=== PATIENT | female | born 1940 | race Asian ===

== ENCOUNTER 2020-11-28 16:41 | Inpatient (IN) | payer OTHER, SELFPAY ==
[2020-11-28] VITALS (15 sets, daily range): BP systolic 103–141; BP diastolic 54–66; PULSE 63–79; RESP 15–30; TEMP 36.6–37.3; O2SAT 83–97; BMI 23.4
--- NOTE | 2020-11-28 16:54 | DI.CT.S_ITS ---
PROCEDURE: CT HEAD/BRAIN WO CON INDICATIONS: confusion TECHNIQUE: Noncontrast 4.5 mm thick angled axial sections acquired from the foramen magnum to the vertex, with coronal and sagittal reformats. For radiation dose reduction, the following was used: automated exposure control, adjustment of mA and/or kV according to patient size. COMPARISON: [facility], CR, XR CHEST 1V, 11/28/2020, 17:14. FINDINGS: Image quality: Excellent. CSF spaces: Basal cisterns are patent. No extra-axial fluid collections. The ventricles are symmetric in size and shape. Brain: Focal low density can be seen involving the left frontal lobe, with volume loss. There is relative sparing of the overlying adames matter. Milder areas of low density can be seen elsewhere within the cerebral hemisphere. No intracranial bleeds or masses. There is cerebral volume loss for age, with resultant ventricular and sulcal prominence. There are periventricular and deep white matter chronic small vessel ischemic changes. There is intracranial internal carotid artery atherosclerosis. Skull and face: Calvarium and visualized facial bones appear intact, without suspicious lesions. Sinuses: Visualized sinuses and mastoids are clear. IMPRESSION: No ligia, acute abnormality can be seen. 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 However, differential diagnosis would include an underlying mass, yet this is considered to be less likely. When clinically appropriate, please consider a follow-up brain MRI (without and with contrast) contrast for further evaluation (assuming that there is no contraindication). Dictated by: Ihsan Osman M.D. on 11/28/2020 at 16:53 Approved by: Ihsan Osman M.D. on 11/28/2020 at 16:55
--- NOTE | 2020-11-28 17:10 | ED.NEUROSD ---
HPI - Neuro Symptoms/Deficit General Chief Complaint: Neuro Symptoms/Deficit Stated Complaint: heat exhaustion,dehydration Time Seen by Provider: 11/28/20 16:54 Source: patient Mode of arrival: Ambulatory History of Present Illness HPI Narrative: Patient is an 80-year-old female with history of stroke presenting today with increased confusion and headache. states that she was seen at [facility] on November 22 after heat stroke. He says she continues to not do well. He says her communication has gotten worse and she continues to complain of headache, and have confusion. She is found to be hypoxic at 86% on room air with low blood pressure of 103/54. She is overall in extremely poor historian. is only slightly better. Records from [place] have been seen and reviewed in. Related Data Home Medications Medication Instructions Recorded Confirmed acetaminophen 300 mg-codeine 30 mg 1 tab PO Q4H PRN 11/29/20 11/29/20 tablet atorvastatin 40 mg tablet 80 mg PO BEDTIME 11/29/20 11/29/20 carvedilol 12.5 mg tablet 12.5 mg PO BID 11/29/20 11/29/20 clopidogrel 75 mg tablet 75 mg PO DAILY 11/29/20 11/29/20 denosumab 60 mg/mL subcutaneous 60 mg SUBCUT [id number] 11/29/20 11/29/20 syringe (Prolia) escitalopram oxalate 5 mg tablet 5 mg PO DAILY 11/29/20 11/29/20 metformin 500 mg tablet 500 mg PO BID 11/29/20 11/29/20 nifedipine 30 mg tablet,extended 60 mg PO DAILY 11/29/20 11/29/20 release pantoprazole 20 mg tablet,delayed 20 mg PO DAILY 11/29/20 11/29/20 release Allergies Allergy/AdvReac Type Severity Reaction Status Date / Time No Known Drug Allergies Allergy Verified 11/28/20 17:28 Review of Systems Review of Systems ROS Unobtainable: All systems reviewed & are unremarkable except as noted in HPI and below Constitutional Constitutional: Reports anorexia, Reports fatigue, Reports headache(s) and Reports weakness ENT Ears, Nose, Mouth, and Throat: Reports headache(s) Cardiovascular Cardiovascular: Denies chest pain, Denies rapid heart rate and Denies irregular heart rhythm Respiratory Respiratory: Denies chest congestion and Denies cough Gastrointestinal Gastrointestinal: Denies nausea and Denies vomiting Musculoskeletal Musculoskeletal: Denies back pain and Reports muscle weakness Neurologic Neurologic: Denies abnormal movements, Reports headache(s) and Reports weakness Endocrine Endocrine: Reports fatigue Patient History Medical History CVA (cerebral vascular accident) Essential hypertension Hyperlipidemia Surgical History History of hysterectomy History of nasal surgery History of shoulder surgery Family History Mother Medical history unknown Father Medical history unknown Brother Medical history unknown Brother Medical history unknown Social History household members: spouse Exam Initial Vital Signs Initial Vital Signs: Vital Signs Temperature 99.1 F 11/28/20 16:53 Pulse Rate 79 11/28/20 16:53 Respiratory Rate 24 11/28/20 16:53 Blood Pressure 103/54 L 11/28/20 16:53 Pulse Oximetry 83 L 11/28/20 16:53 GENERAL: Alert 80-year-old female appears weak HEENT: Head atraumatic,EOMI, pupils reactive, face symmetric, moist mucous membranes CARDIOVASCULAR: Regular rate and rhythm positive 6/6 systolic murmur RESPIRATORY: Breath sounds equal bilaterally, no wheezes rales or rhonchi. ABDOMEN: Soft, nontender. Normoactive bowel sounds all 4 quadrants. No guarding or rebound. EXTREMITIES: Normal range of motion, no clubbing or edema. Neurovascularly intact NEUROLOGICAL: Alert and oriented x2. 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 Course Orders Ordered: Acetaminophen (Acetaminophen 325 Mg Tablet) 650 mg PO Q4HR PRN PRN Reason: Fever/Mild Pain (1-3) Acetaminophen/Codeine Phosphate (Codeine/Acetaminophen 30/300 Tablet) 1 tab PO Q4H PRN PRN Reason: Pain (Scale Score 4-6) Last Admin: 11/30/20 10:49 Dose: 1 tab Documented by: Admin: 11/29/20 20:32 Dose: 1 tab Documented by: ANGELINA Docusate Sodium (Docusate 100 Mg Capsule) 100 mg PO BID PRN PRN Reason: Constipation Lorazepam (Lorazepam 2 Mg/Ml Inj) 1 mg IV Q1HR PRN PRN Reason: Agitation/Anxiety Last Admin: 12/03/20 13:37 Dose: 1 mg Documented by: Admin: 12/03/20 09:19 Dose: 1 mg Documented by: Admin: 12/03/20 07:26 Dose: 1 mg Documented by: Admin: 12/02/20 20:05 Dose: 1 mg Documented by: Admin: 12/02/20 17:50 Dose: 1 mg Documented by: Admin: 12/02/20 14:50 Dose: 1 mg Documented by: Admin: 12/02/20 08:41 Dose: 1 mg Documented by: Admin: 12/02/20 03:48 Dose: 1 mg Documented by: FERNY Metoclopramide HCl (Metoclopramide 10 Mg/2 Ml Inj) 10 mg IV Q4HR PRN PRN Reason: Nausea And Vomiting Morphine Sulfate (Morphine 2 Mg/Ml Inj) 2 mg IV Q30MIN PRN PRN Reason: Pain/Dyspnea Last Admin: 12/03/20 14:41 Dose: 2 mg Documented by: Admin: 12/03/20 13:06 Dose: 2 mg Documented by: Admin: 12/03/20 11:11 Dose: 2 mg Documented by: Admin: 12/03/20 08:56 Dose: 2 mg Documented by: Admin: 12/03/20 07:26 Dose: 2 mg Documented by: Admin: 12/03/20 06:30 Dose: 2 mg Documented by: Admin: 12/03/20 03:20 Dose: 2 mg Documented by: Admin: 12/02/20 22:07 Dose: 2 mg Documented by: Admin: 12/02/20 19:53 Dose: 2 mg Documented by: Admin: 12/02/20 17:36 Dose: 2 mg Documented by: Admin: 12/02/20 14:50 Dose: 2 mg Documented by: Admin: 12/02/20 11:58 Dose: 2 mg Documented by: Admin: 12/02/20 08:43 Dose: 2 mg Documented by: Admin: 12/02/20 03:48 Dose: 2 mg Documented by: Admin: 12/02/20 03:15 Dose: 2 mg Documented by: CARLOS Naloxone HCl (Naloxone 0.4 Mg/Ml Vial) 0.2 mg IV Q2MIN PRN PRN Reason: Opiate Reversal Ondansetron HCl (Ondansetron 4 Mg/2 Ml Inj) 4 mg IV Q4HR PRN PRN Reason: Nausea And Vomiting Oxycodone HCl (Oxycodone Ir 5 Mg Tablet) 5 mg PO Q4HR PRN PRN Reason: Pain, Moderate (4-6) Last Admin: 11/30/20 11:24 Dose: 5 mg Documented by: SARAH Scopolamine (Scopolamine 1 Patch) 1 patch TOP Q72H PRN PRN Reason: Secretions Last Admin: 12/03/20 13:37 Dose: 1 patch Documented by: Admin: 12/03/20 08:56 Dose: 1 patch Documented by: NABOR Sodium Chloride (Sodium Chloride 0.9% Flush) 10 ml IV PRN PRN PRN Reason: Flush Last Admin: 12/03/20 13:38 Dose: 10 ml Documented by: Admin: 12/01/20 11:57 Dose: 10 ml Documented by: Admin: 12/01/20 03:15 Dose: 10 ml Documented by: FERNY Sodium Chloride (Sodium Chloride 0.9% Flush) 10 ml IV BID BRETT Last Admin: 12/03/20 07:28 Dose: 10 ml Documented by: Admin: 12/02/20 17:37 Dose: 10 ml Documented by: Admin: 12/02/20 11:59 Dose: 10 ml Documented by: Admin: 12/02/20 00:49 Dose: Not Given Documented by: Admin: 12/01/20 09:44 Dose: 10 ml Documented by: Admin: 11/30/20 22:22 Dose: Not Given Documented by: Admin: 11/30/20 11:48 Dose: Not Given Documented by: Admin: 11/29/20 22:14 Dose: Not Given Documented by: Admin: 11/29/20 08:31 Dose: 10 ml Documented by: NICK Discontinued Medications Acetaminophen (Acetaminophen 325 Mg Tablet) 650 mg PO Q4HR PRN PRN Reason: Fever/Mild Pain (1-3) Atorvastatin Calcium (Atorvastatin 20 Mg Tablet) 80 mg PO BEDTIME [facility] Last Admin: 11/29/20 20:33 Dose: 80 mg Documented by: Admin: 11/28/20 23:19 Dose: 80 mg Documented by: CORAZON Atorvastatin Calcium (Atorvastatin 20 Mg Tablet) 80 mg PO BEDTIME [facility] Last Admin: 11/29/20 22:13 Dose: Not Given Documented by: ANGELINA Carvedilol (Carvedilol 12.5 Mg Tablet) 12.5 mg PO BID [facility] Last Admin: 11/29/20 20:33 Dose: 12.5 mg Documented by: Admin: 11/29/20 08:33 Dose: 12.5 mg Documented by: NICK Carvedilol (Carvedilol 12.5 Mg Tablet) 12.5 mg PO BID [facility] Carvedilol (Carvedilol 12.5 Mg Tablet) 3.125 mg PO BID [facility] Last Admin: 11/30/20 11:17 Dose: Not Given Documented by: Admin: 11/29/20 22:14 Dose: Not Given Documented by: ANGELINA Clopidogrel Bisulfate (Clopidogrel 75 Mg Tablet) 75 mg PO DAILY [facility] Last Admin: 11/29/20 08:31 Dose: 75 mg Documented by: NICK Clopidogrel Bisulfate (Clopidogrel 75 Mg Tablet) 75 mg PO DAILY [facility] Last Admin: 11/30/20 11:18 Dose: Not Given Documented by: SARAH Dexamethasone (Dexamethasone 10 Mg/Ml Vial) 10 mg IV NOW ONE Stop: 11/28/20 18:10 Last Admin: 11/28/20 18:39 Dose: 10 mg Documented by: IAM Dexamethasone (Dexamethasone 10 Mg/Ml Vial) 6 mg IV DAILY@1800 [facility] Last Admin: 11/29/20 17:12 Dose: 6 mg Documented by: ANGELINA Dextrose (Dextrose 50 % In Water 25 Gm/50 Ml Syringe) 25 gm IV PRN PRN PRN Reason: Hypoglycemia Docusate Sodium (Docusate 100 Mg Capsule) 100 mg PO BID [facility] Last Admin: 12/02/20 09:40 Dose: Not Given Documented by: Admin: 12/01/20 21:13 Dose: Not Given Documented by: CARLOS Enoxaparin Sodium (Enoxaparin 40 Mg/0.4 Ml Syringe) 40 mg SUBCUT DAILY [facility] Last Admin: 12/02/20 09:41 Dose: Not Given Documented by: Admin: 12/01/20 09:42 Dose: Not Given Documented by: Admin: 11/30/20 11:18 Dose: Not Given Documented by: Admin: 11/29/20 13:50 Dose: 40 mg Documented by: NICK Escitalopram Oxalate (Escitalopram 10 Mg Tablet) 5 mg PO DAILY [facility] Last Admin: 11/29/20 08:31 Dose: 5 mg Documented by: NICK Escitalopram Oxalate (Escitalopram 10 Mg Tablet) 5 mg PO DAILY [facility] Last Admin: 11/30/20 11:48 Dose: Not Given Documented by: SARAH Fentanyl (Fentanyl 25 Mcg/Patch) 25 mcg TOP NOW ONE Stop: 12/01/20 16:17 Last Admin: 12/01/20 17:02 Dose: 25 mcg Documented by: MORRIS Sodium Chloride (Normal Saline 0.9%) 1,000 mls @ 150 mls/hr IV CONT [facility] Stop: 11/28/20 21:26 Last Infusion: 11/28/20 20:26 Dose: 0 mls/hr Documented by: Admin: 11/28/20 17:28 Dose: 150 mls/hr Documented by: VICKY Remdesivir 200 mg/ Sodium (Chloride) 250 mls @ 250 mls/hr IV NOW ONE Stop: 11/28/20 18:10 Last Infusion: 11/28/20 20:25 Dose: 0 mls/hr Documented by: Admin: 11/28/20 18:39 Dose: 250 mls/hr Documented by: IAM Remdesivir 100 mg/ Sodium (Chloride) 250 mls @ 250 mls/hr IV Q24H [facility] Stop: 12/02/20 18:59 Last Infusion: 11/29/20 19:52 Dose: 0 mls/hr Documented by: Admin: 11/29/20 17:20 Dose: 250 mls/hr Documented by: ANGELINA Ceftriaxone Sodium 1,000 mg/ (Sodium Chloride) 100 mls @ 200 mls/hr IV Q24H [facility] Stop: 11/30/20 22:29 Last Infusion: 11/29/20 23:17 Dose: 0 mls/hr Documented by: Admin: 11/29/20 21:00 Dose: 200 mls/hr Documented by: Infusion: 11/29/20 03:15 Dose: 0 mls/hr Documented by: Admin: 11/29/20 02:31 Dose: 200 mls/hr Documented by: CORAZON Sodium Chloride (Normal Saline 0.9%) 1,000 mls @ 50 mls/hr IV CONT [facility] Last Admin: 11/30/20 04:46 Dose: 50 mls/hr Documented by: Infusion: 11/30/20 04:43 Dose: 0 mls/hr Documented by: Admin: 11/29/20 08:33 Dose: 50 mls/hr Documented by: NICK Insulin Human Lispro (Insulin Lispro 100 Unit/Ml 3ml Vial) 0 unit SUBCUT ACHS BRETT; Protocol Last Admin: 12/02/20 09:40 Dose: Not Given Documented by: Admin: 12/01/20 21:13 Dose: Not Given Documented by: Admin: 12/01/20 17:03 Dose: Not Given Documented by: Admin: 12/01/20 12:32 Dose: Not Given Documented by: Admin: 12/01/20 08:11 Dose: Not Given Documented by: Admin: 11/30/20 21:44 Dose: Not Given Documented by: Admin: 11/30/20 17:51 Dose: Not Given Documented by: Admin: 11/30/20 12:09 Dose: Not Given Documented by: Admin: 11/30/20 11:17 Dose: Not Given Documented by: Admin: 11/29/20 20:48 Dose: Not Given Documented by: Admin: 11/29/20 17:00 Dose: 1 unit Documented by: ANGELINA Cosigned by: RADHA Admin: 11/29/20 13:51 Dose: 1 unit Documented by: NICK Cosigned by: CK Admin: 11/29/20 08:51 Dose: Not Given Documented by: NICK Lorazepam (Lorazepam 2 Mg/Ml Inj) 1 mg IV Q1HR PRN PRN Reason: Agitation/Anxiety Last Admin: 12/01/20 10:02 Dose: 1 mg Documented by: Admin: 11/30/20 14:43 Dose: 1 mg Documented by: SARAH Morphine Sulfate (Morphine 2 Mg/Ml Inj) 2 mg IV Q30MIN PRN PRN Reason: Pain/Dyspnea Last Admin: 12/01/20 15:58 Dose: 2 mg Documented by: Admin: 12/01/20 11:56 Dose: 2 mg Documented by: Admin: 12/01/20 09:44 Dose: 2 mg Documented by: Admin: 12/01/20 03:14 Dose: 2 mg Documented by: Admin: 11/30/20 18:52 Dose: 2 mg Documented by: Admin: 11/30/20 15:01 Dose: 2 mg Documented by: THONY Nifedipine (Nifedipine 30 Mg Tab Er) 30 mg PO DAILY [facility] Last Admin: 11/29/20 08:34 Dose: 30 mg Documented by: NICK Nifedipine (Nifedipine 30 Mg Tab Er) 60 mg PO DAILY [facility] Ondansetron HCl (Ondansetron 4 Mg/2 Ml Inj) 4 mg IV Q8HR PRN PRN Reason: Nausea And Vomiting Ondansetron HCl (Ondansetron 4 Mg/2 Ml Inj) 4 mg IV Q4HR PRN PRN Reason: Nausea And Vomiting Pantoprazole Sodium (Pantoprazole Dr 20 Mg Tablet) 20 mg PO DAILY [facility] Admin: 12/02/20 09:41 Dose: Not Given Documented by: Admin: 12/01/20 09:44 Dose: 20 mg Documented by: Admin: 11/30/20 11:48 Dose: Not Given Documented by: SARAH Vital Signs Vital signs: Vital Signs - 8 hr 11/28/20 16:53 11/28/20 17:03 11/28/20 17:06 Temperature 99.1 F Pulse Rate 79 65 65 Respiratory Rate 24 23 21 Blood Pressure 103/54 L 115/56 L Pulse Oximetry 83 L 90 L 90 L 11/28/20 17:30 Temperature Pulse Rate 66 Respiratory Rate 18 Blood Pressure Pulse Oximetry 90 L MDM - Neuro Symptoms/Deficit Lab Data Attestation: I reviewed the patient's lab results. Result diagrams: 11/30/20 06:36 11/30/20 06:36 Labs: Lab Results 11/28/20 11/28/20 11/28/20 Range/Units 17:11 17:11 17:11 WBC 3.7 L (4.5-11.0) X10^3/uL RBC 3.96 L (4.0-5.2) X10^6/uL Hgb 12.0 (12.0-16.0) g/dL Hct 34.6 L (36-46) % MCV 87.5 (80-100) fL MCH 30.2 (26-34) PG MCHC 34.5 (30-36) % RDW 13.5 (11.6-14.8) % Plt Count 90 L (150-400) X10^3/uL Neut % (Auto) 76.2 H (50-75) % Lymph % (Auto) 13.7 L (25-40) % [facility] [place] [facility] % (Auto) 9.6 (3-14) % Eos % (Auto) 0.1 L (2-4) % Baso % (Auto) 0.4 (0-2) % Neut # (Auto) 2800 (7438-3027) /uL Lymph # (Auto) 500 L (3476-9610) /uL [facility] # (Auto) 400 (0-900) /uL Eos # (Auto) 0 (0-450) /uL Baso # (Auto) 0 (0-100) /uL PT (10.1-12.7) SECONDS INR (0.9-1.3) APTT (26.4-36.2) SECONDS ABG pH (7.35-7.45) ABG pCO2 (35-45) mmHg ABG pO2 (80-100) mmHg ABG HCO3 (22-26) mmol/L ABG Total CO2 (21-31) mmol/L ABG O2 Saturation (95-100) % ABG Base Excess (-2-2) mmol/L FiO2 Sodium 127 L (137-145) mmol/L Potassium 4.4 (3.4-5.1) mmol/L Chloride 96 L (98-107) mmol/L Carbon Dioxide 25 (22-32) mmol/L BUN 19 H (7-17) mg/dL Creatinine 0.84 (0.52-1.04) mg/dL Estimated GFR > 60.0 (>60) mL/min BUN/Creatinine Ratio 22.6 H (6-22) Glucose 128 H (80-110) mg/dL Hemoglobin A1c (4.0-6.0) % Lactate 1.4 (0.7-2.1) mmol/L Calcium 8.8 (8.4-10.2) mg/dL Magnesium (1.6-2.3) mg/dL Total Bilirubin 0.9 (0.2-1.3) mg/dL AST 77 H (14-36) IU/L ALT 29 (<35) IU/L Alkaline Phosphatase 152 H (38-126) U/L Total Creatine Kinase 95 (30-135) U/L CK-MB (CK-2) TNP CK-MB (CK-2) Rel Index TNP Troponin I 0.022 (0.01-0.034) ng/mL NT-Pro-B Natriuret Pep (<450) pg/mL Total Protein 6.5 (6.3-8.2) g/dL Albumin 3.4 L (3.5-5.0) g/dL Globulin 3.1 (1.7-4.1) g/dL Albumin/Globulin Ratio 1.1 (1.0-2.8) Procalcitonin 0.44 (<0.5) ng/mL TSH (0.47-4.68) uIU/mL Salicylates < 1.0 (<20) mg/dL Acetaminophen 14 (10-30) ug/mL Ethyl Alcohol < 10 ( - 10) mg/dL SARS-CoV-2 (PCR) (Negative) 11/28/20 11/28/20 11/28/20 Range/Units 17:11 17:11 17:11 WBC (4.5-11.0) X10^3/uL RBC (4.0-5.2) X10^6/uL Hgb (12.0-16.0) g/dL Hct (36-46) % MCV (80-100) fL MCH (26-34) PG MCHC (30-36) % RDW (11.6-14.8) % Plt Count (150-400) X10^3/uL Neut % (Auto) (50-75) % Lymph % (Auto) (25-40) % [facility] % (Auto) (3-14) % Eos % (Auto) (2-4) % Baso % (Auto) (0-2) % Neut # (Auto) (5049-2684) /uL Lymph # (Auto) (4081-7259) /uL [facility] # (Auto) (0-900) /uL Eos # (Auto) (0-450) /uL Baso # (Auto) (0-100) /uL PT 10.8 (10.1-12.7) SECONDS INR 1.0 (0.9-1.3) APTT 38 H (26.4-36.2) SECONDS ABG pH (7.35-7.45) ABG pCO2 (35-45) mmHg ABG pO2 (80-100) mmHg ABG HCO3 (22-26) mmol/L ABG Total CO2 (21-31) mmol/L ABG O2 Saturation (95-100) % ABG Base Excess (-2-2) mmol/L FiO2 Sodium (137-145) mmol/L Potassium (3.4-5.1) mmol/L Chloride (98-107) mmol/L Carbon Dioxide (22-32) mmol/L BUN (7-17) mg/dL Creatinine (0.52-1.04) mg/dL Estimated GFR (>60) mL/min BUN/Creatinine Ratio (6-22) Glucose (80-110) mg/dL Hemoglobin A1c (4.0-6.0) % Lactate (0.7-2.1) mmol/L Calcium (8.4-10.2) mg/dL Magnesium (1.6-2.3) mg/dL Total Bilirubin (0.2-1.3) mg/dL AST (14-36) IU/L ALT (<35) IU/L Alkaline Phosphatase (38-126) U/L Total Creatine Kinase (30-135) U/L CK-MB (CK-2) CK-MB (CK-2) Rel Index Troponin I (0.01-0.034) ng/mL NT-Pro-B Natriuret Pep 2510 H (<450) pg/mL Total Protein (6.3-8.2) g/dL Albumin (3.5-5.0) g/dL Globulin (1.7-4.1) g/dL Albumin/Globulin Ratio (1.0-2.8) Procalcitonin (<0.5) ng/mL TSH 1.98 (0.47-4.68) uIU/mL Salicylates (<20) mg/dL Acetaminophen (10-30) ug/mL Ethyl Alcohol ( - 10) mg/dL SARS-CoV-2 (PCR) (Negative) 11/28/20 11/28/20 11/28/20 Range/Units 17:11 17:11 17:11 WBC (4.5-11.0) X10^3/uL RBC (4.0-5.2) X10^6/uL Hgb (12.0-16.0) g/dL Hct (36-46) % MCV (80-100) fL MCH (26-34) PG MCHC (30-36) % RDW (11.6-14.8) % Plt Count (150-400) X10^3/uL Neut % (Auto) (50-75) % Lymph % (Auto) (25-40) % [facility] % (Auto) (3-14) % Eos % (Auto) (2-4) % Baso % (Auto) (0-2) % Neut # (Auto) (4820-0626) /uL Lymph # (Auto) (3888-1749) /uL [facility] # (Auto) (0-900) /uL Eos # (Auto) (0-450) /uL Baso # (Auto) (0-100) /uL PT (10.1-12.7) SECONDS INR (0.9-1.3) APTT (26.4-36.2) SECONDS ABG pH (7.35-7.45) ABG pCO2 (35-45) mmHg ABG pO2 (80-100) mmHg ABG HCO3 (22-26) mmol/L ABG Total CO2 (21-31) mmol/L ABG O2 Saturation (95-100) % ABG Base Excess (-2-2) mmol/L FiO2 Sodium (137-145) mmol/L Potassium (3.4-5.1) mmol/L Chloride (98-107) mmol/L Carbon Dioxide (22-32) mmol/L BUN (7-17) mg/dL Creatinine (0.52-1.04) mg/dL Estimated GFR (>60) mL/min BUN/Creatinine Ratio (6-22) Glucose (80-110) mg/dL Hemoglobin A1c 6.0 (4.0-6.0) % Lactate (0.7-2.1) mmol/L Calcium (8.4-10.2) mg/dL Magnesium 1.9 (1.6-2.3) mg/dL Total Bilirubin (0.2-1.3) mg/dL AST (14-36) IU/L ALT (<35) IU/L Alkaline Phosphatase (38-126) U/L Total Creatine Kinase (30-135) U/L CK-MB (CK-2) CK-MB (CK-2) Rel Index Troponin I (0.01-0.034) ng/mL NT-Pro-B Natriuret Pep (<450) pg/mL Total Protein (6.3-8.2) g/dL Albumin (3.5-5.0) g/dL Globulin (1.7-4.1) g/dL Albumin/Globulin Ratio (1.0-2.8) Procalcitonin (<0.5) ng/mL TSH (0.47-4.68) uIU/mL Salicylates (<20) mg/dL Acetaminophen (10-30) ug/mL Ethyl Alcohol ( - 10) mg/dL SARS-CoV-2 (PCR) Positive H (Negative) 11/28/20 11/28/20 Range/Units 17:11 17:23 WBC (4.5-11.0) X10^3/uL RBC (4.0-5.2) X10^6/uL Hgb (12.0-16.0) g/dL Hct (36-46) % MCV (80-100) fL MCH (26-34) PG MCHC (30-36) % RDW (11.6-14.8) % Plt Count (150-400) X10^3/uL Neut % (Auto) (50-75) % Lymph % (Auto) (25-40) % [facility] % (Auto) (3-14) % Eos % (Auto) (2-4) % Baso % (Auto) (0-2) % Neut # (Auto) (5267-0403) /uL Lymph # (Auto) (2519-8768) /uL [facility] # (Auto) (0-900) /uL Eos # (Auto) (0-450) /uL Baso # (Auto) (0-100) /uL PT (10.1-12.7) SECONDS INR (0.9-1.3) APTT (26.4-36.2) SECONDS ABG pH 7.53 H (7.35-7.45) ABG pCO2 29.5 L (35-45) mmHg ABG pO2 54 L (80-100) mmHg ABG HCO3 24 (22-26) mmol/L ABG Total CO2 25 (21-31) mmol/L ABG O2 Saturation 91 L (95-100) % ABG Base Excess 2.0 (-2-2) mmol/L FiO2 100 Sodium (137-145) mmol/L Potassium (3.4-5.1) mmol/L Chloride (98-107) mmol/L Carbon Dioxide (22-32) mmol/L BUN (7-17) mg/dL Creatinine (0.52-1.04) mg/dL Estimated GFR (>60) mL/min BUN/Creatinine Ratio (6-22) Glucose (80-110) mg/dL Hemoglobin A1c (4.0-6.0) % Lactate (0.7-2.1) mmol/L Calcium (8.4-10.2) mg/dL Magnesium (1.6-2.3) mg/dL Total Bilirubin (0.2-1.3) mg/dL AST (14-36) IU/L ALT (<35) IU/L Alkaline Phosphatase (38-126) U/L Total Creatine Kinase (30-135) U/L CK-MB (CK-2) CK-MB (CK-2) Rel Index Troponin I (0.01-0.034) ng/mL NT-Pro-B Natriuret Pep (<450) pg/mL Total Protein (6.3-8.2) g/dL Albumin (3.5-5.0) g/dL Globulin (1.7-4.1) g/dL Albumin/Globulin Ratio (1.0-2.8) Procalcitonin Cancelled (<0.5) ng/mL TSH (0.47-4.68) uIU/mL Salicylates (<20) mg/dL Acetaminophen (10-30) ug/mL Ethyl Alcohol ( - 10) mg/dL SARS-CoV-2 (PCR) (Negative) Point of Care Testing Glucose POC [address] scan - head: Radiologist's Impression: PROCEDURE: CT HEAD/BRAIN WO CON INDICATIONS: confusion TECHNIQUE: Noncontrast 4.5 mm thick angled axial sections acquired from the foramen magnum to the vertex, with coronal and sagittal reformats. For radiation dose reduction, the following was used: automated exposure control, adjustment of mA and/or kV according to patient size. COMPARISON: [facility], , XR CHEST 1V, 11/28/2020, 17:14. FINDINGS: Image quality: Excellent. CSF spaces: Basal cisterns are patent. No extra-axial fluid collections. The ventricles are symmetric in size and shape. Brain: Focal low density can be seen involving the left frontal lobe, with volume loss. There is relative sparing of the overlying adames matter. Milder areas of low density can be seen elsewhere within the cerebral hemisphere. No intracranial bleeds or masses. There is cerebral volume loss for age, with resultant ventricular and sulcal prominence. There are periventricular and deep white matter chronic small vessel ischemic changes. There is intracranial internal carotid artery atherosclerosis. Skull and face: Calvarium and visualized facial bones appear intact, without suspicious lesions. Sinuses: Visualized sinuses and mastoids are clear. IMPRESSION: No ligia, acute abnormality can be seen. 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 However, differential diagnosis would include an underlying mass, yet this is considered to be less likely. When clinically appropriate, please consider a follow-up brain MRI (without and with contrast) contrast for further evaluation (assuming that there is no contraindication). Dictated by: Ihsan Osman M.D. on 11/28/2020 at 16:53 Chest x-ray: Radiologist's Impression: PROCEDURE: XR CHEST 1V INDICATIONS: short of breath TECHNIQUE: One view of the chest was acquired. COMPARISON: None. FINDINGS: Surgical changes and devices: Right shoulder postoperative changes are seen. Lungs and pleura: Patchy generalized bilateral interstitial infiltrates are seen. No pneumothorax or large pleural effusion can be seen. Mediastinum: The aorta demonstrates prominence and tortuosity. Atherosclerotic calcification of the aortic arch is noted. Heart size is mildly enlarged. Bones and chest wall: No suspicious bony lesions. Age-appropriate bony degenerative changes are seen. Overlying soft tissues appear unremarkable. IMPRESSION: Interstitial prominence is seen throughout. The interstitial prominence is nonspecific, yet may be related to pulmonary edema in this patient with mild cardiomegaly. Please consider atypical infection, including COVID pneumonia. Postoperative and degenerative changes are seen. Dictated by: Ihsan Osman M.D. on 11/28/2020 at 16:23 ECG Data Interpretation: EKG 1. Sinus rhythm rate 65 p.r. interval 120 QRS 90 QTC 5 1 with significant T-wave inversions be 3 through V 6 along with lead [address] changes respiratory artifact noted MDM Narrative Medical decision making narrative: Patient is quite hypoxic ABG confirms hypoxia patient did not get her COVID vaccine and is COVID positive. She is given dexamethasone and remdesivir for covid. She is requiring oxygen. . I have called and spoken to , who accepts patient for admission Patient's ABG does confirm hypoxia. Discharge Plan Departure Patient Disposition: Admitted As Inpatient Clinical Impression: COVID-19, Acute respiratory failure with hypoxia Admit Date/Time: 11/28/20 18:45 Admit Provider: Oalf Carvajal
[2020-11-28 17:25] LABS: Add Manual Diff / Slide Review NO; Basophils Absolute Auto 0 /uL (0-100); Basophils Percent Auto 0.4 % (0-2); Eosinophils Absolute Auto 0 /uL (0-450); Eosinophils Percent Auto 0.1 % (2-4); Hematocrit 34.6 % (36-46); Lymphocytes Absolute Auto 500 /uL (1100-4500); Lymphocytes Percent Auto 13.7 % (25-40); Mean Corpuscular HGB Conc 34.5 % (30-36); Mean Corpuscular Hemoglobin 30.2 PG (26-34); Mean Corpuscular Volume 87.5 fL (80-100); Monocytes Absolute Auto 400 /uL (0-900); Monocytes Percent Auto 9.6 % (3-14); Neutrophils Absolute Auto 2800 /uL (1500-7000); Neutrophils Percent Auto 76.2 % (50-75); Platelet Count 90 X10^3/uL (150-400); Red Blood Cell Count 3.96 X10^6/uL (4.0-5.2); Red Cell Distribution Width 13.5 % (11.6-14.8); White Blood Cell Count 3.7 X10^3/uL (4.5-11.0)
[2020-11-28] MEDS: SODIUM CHLORIDE 0.9% 1,000 ML 150 ML IV (17:28)
[2020-11-28 17:37] LABS: Prothrombin Time 10.8 SECONDS (10.1-12.7)
[2020-11-28 17:40] LABS: PTT Partial Thromboplastin Tim 38 SECONDS (26.4-36.2)
[2020-11-28 17:42] LABS: Lactate (Lactic Acid) 1.4 mmol/L (0.7-2.1)
[2020-11-28 17:44] LABS: Acetaminophen 14 ug/mL (10-30); Alanine Aminotransferase 29 IU/L (<35); Albumin 3.4 g/dL (3.5-5.0); Albumin Globulin Ratio 1.1 (1.0-2.8); Alkaline Phosphatase 152 U/L (38-126); Aspartate Aminotransferase 77 IU/L (14-36); BUN Creatinine Ratio 22.6 (6-22); Bilirubin Total 0.9 mg/dL (0.2-1.3); Blood Urea Nitrogen 19 mg/dL (7-17); Calcium 8.8 mg/dL (8.4-10.2); Carbon Dioxide 25 mmol/L (22-32); Chloride 96 mmol/L (98-107); Creatine Kinase 95 U/L (30-135); Estimated Glomerular Filt Rate > 60.0 mL/min (>60); Ethanol (ETOH) < 10 mg/dL; Globulin 3.1 g/dL (1.7-4.1); Glucose 128 mg/dL (80-110); HEMOLYSIS < 15 (0-50); Potassium 4.4 mmol/L (3.4-5.1); Salicylate < 1.0 mg/dL (<20); Sodium 127 mmol/L (137-145); Total Protein 6.5 g/dL (6.3-8.2)
[2020-11-28 17:55] LABS: Troponin I 0.022 ng/mL (0.01-0.034)
[2020-11-28 17:59] LABS: COVID19 -Nasal RAPID POSITIVE (Negative)
[2020-11-28 18:00] LABS: Procalcitonin 0.44 ng/mL (<0.5)
[2020-11-28 18:14] LABS: Thyroid Stimulating Hormone 1.98 uIU/mL (0.47-4.68)
[2020-11-28 18:26] LABS: NT-proBNP (BNP-Adult 18+) 2510 pg/mL (<450)
[2020-11-28] MEDS: DEXAMETHASONE 10 MG/ML VIAL IV (18:39)
[2020-11-28] MEDS: REMDESIVIR 200 MG in SODIUM CHLORIDE 0.9% 210 ML 250 ML IV (18:39)
[2020-11-28 20:31] LABS: Appearance Urine UA CLOUDY; Bilirubin Urine UA NEGATIVE (NEGATIVE); Color Urine UA YELLOW; Glucose Urine UA NEGATIVE (Negative); Ketones Urine UA NEGATIVE (NEGATIVE); Leukocyte Esterase Urine UA 1+ (NEGATIVE); Nitrite Urine UA POSITIVE (Negative); Occult Blood Urine UA 1+ (Negative); Protein Urine UA 2+ (Negative); Urobilinogen Urine UA 0.2 E.U./dL (0.2)
[2020-11-28 20:35] LABS: pH Urine UA 5.5 (4.5-8.0)
[2020-11-28 20:39] LABS: Ur Creatinine Normal (Normal); Ur Specific Gravity Normal (Normal); Urine pH Normal (Normal)
[2020-11-28 20:40] LABS: UR Morphine/Opiate cutoff 300 Positive (Negative); Urine Amphetamines Negative (Negative); Urine Barbiturates Negative (Negative); Urine Benzodiazepines Negative (Negative); Urine Cocaine Negative (Negative); Urine MDMA Negative (Negative); Urine Methadone Negative (Negative); Urine Methamphetamines Negative (Negative); Urine Oxycodone Negative (Negative); Urine Phencyclidine Negative (Negative); Urine Tetrahydrocannabinol Negative (Negative); Urine Tricyclic Antidepressant Negative (Negative)
[2020-11-28 20:41] LABS: Amorphous Sediment Urine 1+; Bacteria Urine Many (>30); RBC Urine 1-5/HPF (0-5/HPF); Squamous Epithelial Cell Urine 1-5 /HPF (0-5/HPF); WBC Urine 30-100/HPF (0-5/HPF)
[2020-11-28 20:42] LABS: Culture Indicated Urine Specimen Cultured
[2020-11-28 21:03] LABS: Fractionated Inspired Oxygen 100; HCO3 ABG 24 mmol/L (22-26); Oxygen Saturation ABG 91 % (95-100); PCO2 ABG 29.5 mmHg (35-45); PO2 ABG 54 mmHg (80-100); TCO2 ABG 25 mmol/L (21-31)
[2020-11-28 21:10] LABS: pH ABG 7.53 (7.35-7.45)
[2020-11-28 22:06] LABS: Magnesium 1.9 mg/dL (1.6-2.3)
[2020-11-28] MEDS: ATORVASTATIN 20 MG TABLET 80 MG PO (23:19)
[2020-11-29] VITALS (16 sets, daily range): BP systolic 92–126; BP diastolic 54–60; PULSE 58–66; RESP 16–24; TEMP 36.4–36.5; O2SAT 93–98; BMI 23.4
--- NOTE | 2020-11-29 00:23 | P.HP_ITS ---
History of Present Illness History of Present Illness Date Patient Seen: 11/28/20 Time Patient Seen: 21:40 Chief complaint: heat exhaustion,dehydration Narrative: Shivam Avelar is an 80-year-old female with a prior history of a stroke approximately 1 year ago, diabetes type 2, coronary artery disease, and essential hypertension who presented to the emergency department due to confusion and dehydration. Patient is unable to give me a history other than telling me that she had a stroke several years ago however the stated it was only 1 year ago. History is obtained from her Abraham Avelar. He states approximately a week ago they were driving from [place] and she developed a really bad headache. They stopped at [facility] in [place] just outside of [place] where she was given a CT scan however they were unable to get a IV into her at that time. She insisted upon leaving and then when they arrive [place] that evening she had worsening headaches and they presented to [facility]. This was all within the setting of a current heat wave that was happening over the weekend with temperatures well in excess of over 100?. At [facility] she was evaluated in the ED, and discussions were held between the ED provider and the patient's daughter. Per the records at the outside hospital, the daughter requested that the patient not undergo a CT scan but she had a ready underwent one at the hospital in [place]. She was then seen by her PCP on 11/26 in her home and she was directed to go to the ED in [facility]. She declined and eventually agreed to come to [facility]. Per the , she refused to take a COVID-19 vaccine, the patient's states he has been vaccinated. In the ED, they inserted a midline. She was hypoxic down to 82% on room air and found to be positive for COVID-19 as well as a urinary tract infection. Patient was midly febrile on admission with a temp of 99.7, her blood pressure is 113/58, heart rate 65, respiratory rate 21, oxygen saturation of 94% on 45 liter s/minute high-flow O2 with an FiO2 of 62, she weighs 54.4 kg with a BMI of 23.4. She has a low white count at 3.7 RBC 3.96 hemoglobin 12 hematocrit 34.6 and a platelet count of 90. She does have lymphopenia,, her ABGs 7.53 indicating a metabolic alkalosis on, pCO2 is 29.5, PO2 54, bicarb 24, ABG O2 saturation is 91%, sodium 127, potassium 4.4, chloride 96, bicarb 25, BUN 19, creatinine 0.84, with a GFR greater than 60, glucose is 128, hemoglobin A1c is 6.0, lactate 1.4, calcium 8.8, magnesium 1.9, AST is 77, alk phos is 152, proBNP is 2510, albumin is 3.4, procalcitonin is 0.44, and TSH is 1.98, urinalysis is positive for blood and nitrates and high number of urine wbc's, many bacteria and the specimen will be cultured. COVID 19 PCR is positive. Patient History Medical History CVA (cerebral vascular accident) Essential hypertension Hyperlipidemia Surgical History History of hysterectomy History of nasal surgery History of shoulder surgery Family & Social History Family History Mother Medical history unknown Father Medical history unknown Brother Medical history unknown Brother Medical history unknown Social History: household members spouse Tobacco & Substance use: Denies a history of smoking or alcohol use Meds Home Medications and Allergies Allergies Allergy/AdvReac Type Severity Reaction Status Date / Time No Known Drug Allergies Allergy Verified 11/28/20 17:28 Review of Systems Review of Systems ROS: Yes unobtainable due to mental status Exam Vital Signs (past 8 hours): - 11/28/20 16:53 11/28/20 17:03 11/28/20 17:06 Temperature 99.1 F Pulse Rate 79 65 65 Respiratory Rate 24 23 21 Blood Pressure 103/54 L 115/56 L Pulse Oximetry 83 L 90 L 90 L 11/28/20 17:30 11/28/20 17:49 11/28/20 18:00 Temperature Pulse Rate 66 66 66 Respiratory Rate 18 30 H 22 Blood Pressure 117/60 116/56 L Pulse Oximetry 90 L 90 L 91 11/28/20 18:30 11/28/20 19:00 11/28/20 19:30 Temperature Pulse Rate 68 64 66 Respiratory Rate 21 16 18 Blood Pressure 124/60 122/60 116/58 L Pulse Oximetry 89 L 97 91 11/28/20 19:55 11/28/20 20:00 11/28/20 20:26 Temperature Pulse Rate 68 67 66 Respiratory Rate 18 20 18 Blood Pressure 122/60 121/58 L 121/62 Pulse Oximetry 94 93 95 11/28/20 22:09 11/28/20 22:29 11/28/20 23:42 Temperature 98 F 98.7 F Pulse Rate 70 63 65 Respiratory Rate 21 15 21 Blood Pressure 141/66 H 134/63 113/58 L Pulse Oximetry 92 94 Fraction of Inspired Oxygen 62 Oxygen Delivery Method Heated High Flow Oxygen Flow Rate 45 Narrative Exam Narrative: Gen: Alert, to self only, generally confused cachectic appearing 80 y.o. A merican female on high flow humidified O2 HEENT: normocephalic, atraumatic, conjunctiva clear, sclera non-icteric, oral mucosa pink and moist Neck: supple, full ROM, no JVD, trachea is midline Resp: Lungs CTA, non-labored breathing CV: RRR, no murmur or rubs Abd: soft, non-tender, normoactive BTs Skin: no lesions or rashes, dry and intact Neuro: Alert and oriented X 1-2 w/no focal deficits. Has word finding problems. GCS of 13 Extremities: moves all 4 extremities, is ambulatory, negative Toma?s sign Psyche: cooperative, normal mood and affect Objective Labs Result Diagrams: 11/28/20 17:11 11/28/20 17:11 Labs: Laboratory Results - last 24 hr 11/28/20 11/28/20 11/28/20 17:11 17:11 17:11 WBC 3.7 L RBC 3.96 L Hgb 12.0 Hct 34.6 L MCV 87.5 MCH 30.2 MCHC 34.5 RDW 13.5 Plt Count 90 L Neut % (Auto) 76.2 H Lymph % (Auto) 13.7 L [place] % (Auto) 9.6 Eos % (Auto) 0.1 L Baso % (Auto) 0.4 Neut # (Auto) 2800 Lymph # (Auto) 500 L [place] # (Auto) 400 Eos # (Auto) 0 Baso # (Auto) 0 PT INR APTT ABG pH ABG pCO2 ABG pO2 ABG HCO3 ABG Total CO2 ABG O2 Saturation ABG Base Excess FiO2 Sodium 127 L Potassium 4.4 Chloride 96 L Carbon Dioxide 25 BUN 19 H Creatinine 0.84 Estimated GFR > 60.0 BUN/Creatinine Ratio 22.6 H Glucose 128 H Hemoglobin A1c Lactate 1.4 Calcium 8.8 Magnesium Total Bilirubin 0.9 AST 77 H ALT 29 Alkaline Phosphatase 152 H Total Creatine Kinase 95 CK-MB (CK-2) TNP CK-MB (CK-2) Rel Index TNP Troponin I 0.022 NT-Pro-B Natriuret Pep Total Protein 6.5 Albumin 3.4 L Globulin 3.1 Albumin/Globulin Ratio 1.1 Procalcitonin 0.44 TSH Urine Color Urine Appearance Urine pH Ur Specific [place] Urine Protein Urine Glucose (UA) Urine Ketones Urine Occult Blood Urine Nitrate Urine Bilirubin Urine Urobilinogen Ur Leukocyte Esterase Urine RBC Urine WBC Ur Squamous Epith Cells Amorphous Sediment Urine Bacteria Ur Culture Indicated? Salicylates < 1.0 U Opiates 300ng/mL cut Ur Oxycodone Screen Urine Methadone Screen Acetaminophen 14 Ur Barbiturates Screen U Tricyclic Antidepress Ur Phencyclidine Scrn Ur Amphetamines Screen U Methamphetamines Scrn Ur MDMA Scrn (Ecstasy) U Benzodiazepines Scrn Urine Cocaine Screen U Marijuana (THC) Screen Ethyl Alcohol < 10 SARS-CoV-2 (PCR) 11/28/20 11/28/20 11/28/20 17:11 17:11 17:11 WBC RBC Hgb Hct MCV MCH MCHC RDW Plt Count Neut % (Auto) Lymph % (Auto) [place] % (Auto) Eos % (Auto) Baso % (Auto) Neut # (Auto) Lymph # (Auto) [place] # (Auto) Eos # (Auto) Baso # (Auto) PT 10.8 INR 1.0 APTT 38 H ABG pH ABG pCO2 ABG pO2 ABG HCO3 ABG Total CO2 ABG O2 Saturation ABG Base Excess FiO2 Sodium Potassium Chloride Carbon Dioxide BUN Creatinine Estimated GFR BUN/Creatinine Ratio Glucose Hemoglobin A1c Lactate Calcium Magnesium Total Bilirubin AST ALT Alkaline Phosphatase Total Creatine Kinase CK-MB (CK-2) CK-MB (CK-2) Rel Index Troponin I NT-Pro-B Natriuret Pep 2510 H Total Protein Albumin Globulin Albumin/Globulin Ratio Procalcitonin TSH 1.98 Urine Color Urine Appearance Urine pH Ur Specific [place] Urine Protein Urine Glucose (UA) Urine Ketones Urine Occult Blood Urine Nitrate Urine Bilirubin Urine Urobilinogen Ur Leukocyte Esterase Urine RBC Urine WBC Ur Squamous Epith Cells Amorphous Sediment Urine Bacteria Ur Culture Indicated? Salicylates U Opiates 300ng/mL cut Ur Oxycodone Screen Urine Methadone Screen Acetaminophen Ur Barbiturates Screen U Tricyclic Antidepress Ur Phencyclidine Scrn Ur Amphetamines Screen U Methamphetamines Scrn Ur MDMA Scrn (Ecstasy) U Benzodiazepines Scrn Urine Cocaine Screen U Marijuana (THC) Screen Ethyl Alcohol SARS-CoV-2 (PCR) 11/28/20 11/28/20 11/28/20 17:11 17:11 17:11 WBC RBC Hgb Hct MCV MCH MCHC RDW Plt Count Neut % (Auto) Lymph % (Auto) [place] % (Auto) Eos % (Auto) Baso % (Auto) Neut # (Auto) Lymph # (Auto) [place] # (Auto) Eos # (Auto) Baso # (Auto) PT INR APTT ABG pH ABG pCO2 ABG pO2 ABG HCO3 ABG Total CO2 ABG O2 Saturation ABG Base Excess FiO2 Sodium Potassium Chloride Carbon Dioxide BUN Creatinine Estimated GFR BUN/Creatinine Ratio Glucose Hemoglobin A1c 6.0 Lactate Calcium Magnesium 1.9 Total Bilirubin AST ALT Alkaline Phosphatase Total Creatine Kinase CK-MB (CK-2) CK-MB (CK-2) Rel Index Troponin I NT-Pro-B Natriuret Pep Total Protein Albumin Globulin Albumin/Globulin Ratio Procalcitonin TSH Urine Color Urine Appearance Urine pH Ur Specific [place] Urine Protein Urine Glucose (UA) Urine Ketones Urine Occult Blood Urine Nitrate Urine Bilirubin Urine Urobilinogen Ur Leukocyte Esterase Urine RBC Urine WBC Ur Squamous Epith Cells Amorphous Sediment Urine Bacteria Ur Culture Indicated? Salicylates U Opiates 300ng/mL cut Ur Oxycodone Screen Urine Methadone Screen Acetaminophen Ur Barbiturates Screen U Tricyclic Antidepress Ur Phencyclidine Scrn Ur Amphetamines Screen U Methamphetamines Scrn Ur MDMA Scrn (Ecstasy) U Benzodiazepines Scrn Urine Cocaine Screen U Marijuana (THC) Screen Ethyl Alcohol SARS-CoV-2 (PCR) Positive H 11/28/20 11/28/20 11/28/20 17:11 17:23 20:27 WBC RBC Hgb Hct MCV MCH MCHC RDW Plt Count Neut % (Auto) Lymph % (Auto) [place] % (Auto) Eos % (Auto) Baso % (Auto) Neut # (Auto) Lymph # (Auto) [place] # (Auto) Eos # (Auto) Baso # (Auto) PT INR APTT ABG pH 7.53 H ABG pCO2 29.5 L ABG pO2 54 L ABG HCO3 24 ABG Total CO2 25 ABG O2 Saturation 91 L ABG Base Excess 2.0 FiO2 100 Sodium Potassium Chloride Carbon Dioxide BUN Creatinine Estimated GFR BUN/Creatinine Ratio Glucose Hemoglobin A1c Lactate Calcium Magnesium Total Bilirubin AST ALT Alkaline Phosphatase Total Creatine Kinase CK-MB (CK-2) CK-MB (CK-2) Rel Index Troponin I NT-Pro-B Natriuret Pep Total Protein Albumin Globulin Albumin/Globulin Ratio Procalcitonin Cancelled TSH Urine Color Yellow Urine Appearance Cloudy Urine pH 5.5 Ur Specific [place] 1.010 Urine Protein 2+ H Urine Glucose (UA) Negative Urine Ketones Negative Urine Occult Blood 1+ H Urine Nitrate Positive H Urine Bilirubin Negative Urine Urobilinogen 0.2 Ur Leukocyte Esterase 1+ H Urine RBC 1-5/hpf Urine WBC 30-100/hpf H Ur Squamous Epith Cells 1-5 /hpf Amorphous Sediment 1+ Urine Bacteria Many (>30) H Ur Culture Indicated? Specimen cultured Salicylates U Opiates 300ng/mL cut Ur Oxycodone Screen Urine Methadone Screen Acetaminophen Ur Barbiturates Screen U Tricyclic Antidepress Ur Phencyclidine Scrn Ur Amphetamines Screen U Methamphetamines Scrn Ur MDMA Scrn (Ecstasy) U Benzodiazepines Scrn Urine Cocaine Screen U Marijuana (THC) Screen Ethyl Alcohol SARS-CoV-2 (PCR) 11/28/20 20:38 WBC RBC Hgb Hct MCV MCH MCHC RDW Plt Count Neut % (Auto) Lymph % (Auto) [place] % (Auto) Eos % (Auto) Baso % (Auto) Neut # (Auto) Lymph # (Auto) [place] # (Auto) Eos # (Auto) Baso # (Auto) PT INR APTT ABG pH ABG pCO2 ABG pO2 ABG HCO3 ABG Total CO2 ABG O2 Saturation ABG Base Excess FiO2 Sodium Potassium Chloride Carbon Dioxide BUN Creatinine Estimated GFR BUN/Creatinine Ratio Glucose Hemoglobin A1c Lactate Calcium Magnesium Total Bilirubin AST ALT Alkaline Phosphatase Total Creatine Kinase CK-MB (CK-2) CK-MB (CK-2) Rel Index Troponin I NT-Pro-B Natriuret Pep Total Protein Albumin Globulin Albumin/Globulin Ratio Procalcitonin TSH Urine Color Urine Appearance Urine pH Ur Specific [place] Urine Protein Urine Glucose (UA) Urine Ketones Urine Occult Blood Urine Nitrate Urine Bilirubin Urine Urobilinogen Ur Leukocyte Esterase Urine RBC Urine WBC Ur Squamous Epith Cells Amorphous Sediment Urine Bacteria Ur Culture Indicated? Salicylates U Opiates 300ng/mL cut Positive H Ur Oxycodone Screen Negative Urine Methadone Screen Negative Acetaminophen Ur Barbiturates Screen Negative U Tricyclic Antidepress Negative Ur Phencyclidine Scrn Negative Ur Amphetamines Screen Negative U Methamphetamines Scrn Negative Ur MDMA Scrn (Ecstasy) Negative U Benzodiazepines Scrn Negative Urine Cocaine Screen Negative U Marijuana (THC) Screen Negative Ethyl Alcohol SARS-CoV-2 (PCR) Assessment & Plan Assessment & Plan narrative: Soon Valentino is admitted for acute respiratory failure in the setting of COVID-19 Pneumonia, and a urinary tract infection. 1. Acute respiratory failure in the setting of COVID-19 Pneumonia, present on admission * She was initiated on loading dose of IV remdesivir 200 mg. She will be continued on IV remdesivir 100 mg daily * She was initiated on IV dexamethasone 10 mg and will be continued on 6 mg daily * RT consult and currently is on high-flow humidified oxygen 2. Acute metabolic encephalopathy, present on admission * Patient has a respiratory alkalosis indicating an ABG oxygen saturation of 91% 3. Acute urinary tract infection * She is initiated on IV ceftriaxone 1 g daily 4. Difficult IV access, acute, present on admission * Patient had a midline placed while in the ED however it is not patent, nor can be flushed * PICC line has been ordered for the patient and we are currently waiting for the off hours registered nurse to arrive to place the PICC line * In case of failure, consideration of placing a central line will need to be made. 5. Diabetes type 2, chronic, controlled and present on admission with an A1c of 6.0 * Low dose insulin correctional scale, oral medications are being held * Glucose checks achs * Carb controlled diet 6. Essential hypertension, currently hypotensive * She may resume home medications of Nifedipine and carvedilol if her blood pre ssure supports it. 7. Hyperlipidemia, chronic * Continue atorvastatin 40 mg po at bedtime 8. Thombocytopenia, appears to be chronic * Platelet count on 11/22 was 81, today it is 90 * She is at high risk for a hypercoaguable state due to COVID-19 VTE prophylaxis: Wells risk score: 1.5 Pharmacological VTE prophylaxis is contraindicated due to thrombocytopenia, bilateral SCDs are ordered. Consults: none Patient is admitted under inpatient status with expected length of stay greater than 2 midnights due to severity of presenting symptoms, risk of adverse event, and complexity of treatment plan. FEN: IV saline lock, carb controlled diet, BMP and magnesium in the am. Dispo: Unknown at this time Code Status: Limited code with short term trial of intubation as discussed with with Abraham Avelar, her and surrogate/POA. COVID-19 COVID-19 status: Positive Result date/Date tested (Pos, Neg/Pending): 11/28/20 Scores GCS Pam coma scale eye opening: Spontaneous Pam coma scale verbal response: Confused Pam coma scale motor response: Localising [place] coma scale total score: 13 Wells' Criteria for PE Clinical signs and symptoms of DVT: No PE is #1 Dx or equally likely: No Heart rate > 100: No Immobilization at least 3 days or surg in previous 4 weeks: Yes (But riding as a vehicle passenger for several days) History of PE or DVT: No Hemoptysis: No Malignancy w/Treatment within 6 months or palliative: No Wells' PE Score total: 1.5 Quality VTE Deep Vein Thrombosis/Pulmonary Embolism Present on Admission: No
--- NOTE | 2020-11-29 01:25 | PC.NURSE ---
Addendum entered by Elena Odell R.N. 11/29/20 06:12: Piccline placed at 0230, IV Rocephin given. Allevyn attached to face and HHF tubing to keep patient from swiping NC from nares while sleeping. SpO2 has been >94% at rest, down to 90% when using bedpan, urine is cloudy gabrielle with foul odor. She is more oriented in am, using call light, asking what time is it and when do you go home? Original Note: Admit Note-Patient brought to ICU room 230 for Droplet/Airborne Isolation for positive Covid-19. She is oriented to person and place, has trouble with word finding, says I had a stroke, fatigued I want to sleep. HHFNC at 45L/60% FIO2, SpO2 94%, will desat to 80% when she removes cannula, no shortness of breath, lung sounds coarse throughout. Afebrile, SR, denies headache or pain. Able to swallow pills with water, no cough. Midline in RUE not patent, attempts to place peripheral IV site failed, Piccline to be placed by Gertrude iwlks.
[2020-11-29] MEDS: cefTRIAXone 1,000 MG in SODIUM CHLORIDE 0.9% 100 ML 200 ML IV ×2 (02:31→21:00)
[2020-11-29 05:39] LABS: Add Manual Diff / Slide Review NO; Basophils Absolute Auto 0 /uL (0-100); Basophils Percent Auto 0.6 % (0-2); Eosinophils Absolute Auto 0 /uL (0-450); Hematocrit 34.7 % (36-46); Hemoglobin 11.9 g/dL (12.0-16.0); Lymphocytes Absolute Auto 400 /uL (1100-4500); Lymphocytes Percent Auto 20.6 % (25-40); Mean Corpuscular HGB Conc 34.1 % (30-36); Mean Corpuscular Hemoglobin 29.8 PG (26-34); Mean Corpuscular Volume 87.3 fL (80-100); Monocytes Absolute Auto 200 /uL (0-900); Monocytes Percent Auto 7.7 % (3-14); Neutrophils Absolute Auto 1400 /uL (1500-7000); Neutrophils Percent Auto 71.1 % (50-75); Platelet Count 92 X10^3/uL (150-400); Red Blood Cell Count 3.97 X10^6/uL (4.0-5.2); Red Cell Distribution Width 13.4 % (11.6-14.8)
[2020-11-29 05:46] LABS: Lactate (Lactic Acid) 0.8 mmol/L (0.7-2.1)
[2020-11-29 05:47] LABS: Blood Urea Nitrogen 20 mg/dL (7-17); Calcium 8.2 mg/dL (8.4-10.2); Carbon Dioxide 25 mmol/L (22-32); Chloride 101 mmol/L (98-107); Creatine Kinase 65 U/L (30-135); Estimated Glomerular Filt Rate > 60.0 mL/min (>60); Glucose 130 mg/dL (80-110); HEMOLYSIS < 15 (0-50); Sodium 130 mmol/L (137-145)
[2020-11-29] MEDS: SODIUM CHLORIDE 0.9% FLUSH 10 ML IV (08:31)
[2020-11-29] MEDS: ESCITALOPRAM 10 MG TABLET 5 MG PO (08:31)
[2020-11-29] MEDS: CLOPIDOGREL 75 MG TABLET PO (08:31)
[2020-11-29] MEDS: carvediloL 12.5 MG TABLET PO ×2 (08:33→20:33)
[2020-11-29] MEDS: SODIUM CHLORIDE 0.9% 1,000 ML 50 ML IV (08:33)
[2020-11-29] MEDS: NIFEdipine 30 MG TAB ER PO (08:34)
[2020-11-29] MEDS: ENOXAPARIN 40 MG/0.4 ML SYRINGE SUBCUT (13:50)
[2020-11-29] MEDS: INSULIN LISPRO 100 UNIT/ML 3ML VIAL SUBCUT ×2 (13:51→17:00)
--- NOTE | 2020-11-29 13:53 | CM.IDA ---
Initial DCP Assessment Note Pt is an 80 yo female, resident of [place], presents w/ confusion and dehydration, admitted for acute respiratory failure in the setting of COVID-19 Pneumonia, and a urinary tract infection. PCP: Carroll Pineda Payer: [employer] [facility] Reviewed chart, according to H+P which was completed early this morning; patient and spouse had been traveling when patient started not feeling well. This is the third hospital patient has visited in the last few weeks. According to spouse, patient has refused to get the COVID-[address]. [address] Carvajal, patient remains quite ill, medical management continues. DCP team will plan to follow closely as medical POC unfolds SUJATA Rogers
[2020-11-29] MEDS: DEXAMETHASONE 10 MG/ML VIAL 6 MG IV (17:12)
[2020-11-29] MEDS: REMDESIVIR 100 MG in SODIUM CHLORIDE 0.9% 230 ML 250 ML IV (17:20)
[2020-11-29] MEDS: CODEINE/ACETAMINOPHEN 30/300 TABLET 1 TAB PO (20:32)
[2020-11-29] MEDS: ATORVASTATIN 20 MG TABLET 80 MG PO (20:33)
--- NOTE | 2020-11-29 20:45 | P.PN_ITS ---
Subjective Subjective Date Patient Seen: 11/29/20 Time Patient Seen: 08:00 Interval history: Today she felt no short of breath. Per report from overnight she was fairly confused, but today she is less so per my evaluation. She is still moving air poorly, but does not feel short of breath. Exam Vital Signs (past 8 hours): - 11/29/20 14:00 11/29/20 14:58 11/29/20 17:30 Pulse Rate 64 62 61 Respiratory Rate 19 24 20 Blood Pressure 92/54 L 92/54 L 111/56 L Pulse Oximetry 93 96 95 11/29/20 19:00 Pulse Rate 66 Respiratory Rate 24 Blood Pressure 111/56 L Pulse Oximetry 93 Fraction of Inspired Oxygen 45 Oxygen Delivery Method Heated High Flow Oxygen Flow Rate 45 Narrative Exam Narrative: Gen: alert, awake, no acute distress Resp: coarse breath sounds poor air movement CV: RRR, 3/6 ASHLEY Abd: soft, non-tender, normal bowel sounds Skin: no lesions or rashes, dry and intact NEURO: alert and oriented, slow to speak Extremities: moves all extremities Psyche: cooperative, normal mood and affect Objective Labs Result Diagrams: 11/29/20 05:15 11/29/20 05:15 Labs: Laboratory Results - last 24 hr 11/28/20 11/28/20 11/28/20 17:11 17:11 17:11 WBC RBC Hgb Hct MCV MCH MCHC RDW Plt Count Neut % (Auto) Lymph % (Auto) [place] % (Auto) Eos % (Auto) Baso % (Auto) Neut # (Auto) Lymph # (Auto) [place] # (Auto) Eos # (Auto) Baso # (Auto) ABG pH ABG pCO2 ABG pO2 ABG HCO3 ABG Total CO2 ABG O2 Saturation ABG Base Excess FiO2 Sodium Potassium Chloride Carbon Dioxide BUN Creatinine Estimated GFR BUN/Creatinine Ratio Glucose Hemoglobin A1c 6.0 Lactate Calcium Magnesium 1.9 Total Creatine Kinase Procalcitonin Cancelled Urine Color Urine Appearance Urine pH Ur Specific [place] Urine Protein Urine Glucose (UA) Urine Ketones Urine Occult Blood Urine Nitrate Urine Bilirubin Urine Urobilinogen Ur Leukocyte Esterase Urine RBC Urine WBC Ur Squamous Epith Cells Amorphous Sediment Urine Bacteria Ur Culture Indicated? U Opiates 300ng/mL cut Ur Oxycodone Screen Urine Methadone Screen Ur Barbiturates Screen U Tricyclic Antidepress Ur Phencyclidine Scrn Ur Amphetamines Screen U Methamphetamines Scrn Ur MDMA Scrn (Ecstasy) U Benzodiazepines Scrn Urine Cocaine Screen U Marijuana (THC) Screen 11/28/20 11/28/20 11/28/20 17:23 20:27 20:38 WBC RBC Hgb Hct MCV MCH MCHC RDW Plt Count Neut % (Auto) Lymph % (Auto) [place] % (Auto) Eos % (Auto) Baso % (Auto) Neut # (Auto) Lymph # (Auto) [place] # (Auto) Eos # (Auto) Baso # (Auto) ABG pH 7.53 H ABG pCO2 29.5 L ABG pO2 54 L ABG HCO3 24 ABG Total CO2 25 ABG O2 Saturation 91 L ABG Base Excess 2.0 FiO2 100 Sodium Potassium Chloride Carbon Dioxide BUN Creatinine Estimated GFR BUN/Creatinine Ratio Glucose Hemoglobin A1c Lactate Calcium Magnesium Total Creatine Kinase Procalcitonin Urine Color Yellow Urine Appearance Cloudy Urine pH 5.5 Ur Specific [place] 1.010 Urine Protein 2+ H Urine Glucose (UA) Negative Urine Ketones Negative Urine Occult Blood 1+ H Urine Nitrate Positive H Urine Bilirubin Negative Urine Urobilinogen 0.2 Ur Leukocyte Esterase 1+ H Urine RBC 1-5/hpf Urine WBC 30-100/hpf H Ur Squamous Epith Cells 1-5 /hpf Amorphous Sediment 1+ Urine Bacteria Many (>30) H Ur Culture Indicated? Specimen cultured U Opiates 300ng/mL cut Positive H Ur Oxycodone Screen Negative Urine Methadone Screen Negative Ur Barbiturates Screen Negative U Tricyclic Antidepress Negative Ur Phencyclidine Scrn Negative Ur Amphetamines Screen Negative U Methamphetamines Scrn Negative Ur MDMA Scrn (Ecstasy) Negative U Benzodiazepines Scrn Negative Urine Cocaine Screen Negative U Marijuana (THC) Screen Negative 11/29/20 11/29/20 11/29/20 05:15 05:15 05:15 WBC 2.0 L RBC 3.97 L Hgb 11.9 L Hct 34.7 L MCV 87.3 MCH 29.8 MCHC 34.1 RDW 13.4 Plt Count 92 L Neut % (Auto) 71.1 Lymph % (Auto) 20.6 L [place] % (Auto) 7.7 Eos % (Auto) 0.0 L Baso % (Auto) 0.6 Neut # (Auto) 1400 L Lymph # (Auto) 400 L [place] # (Auto) 200 Eos # (Auto) 0 Baso # (Auto) 0 ABG pH ABG pCO2 ABG pO2 ABG HCO3 ABG Total CO2 ABG O2 Saturation ABG Base Excess FiO2 Sodium 130 L Potassium 4.0 Chloride 101 Carbon Dioxide 25 BUN 20 H Creatinine 0.80 Estimated GFR > 60.0 BUN/Creatinine Ratio 25.0 H Glucose 130 H Hemoglobin A1c Lactate 0.8 Calcium 8.2 L Magnesium 2.0 Total Creatine Kinase 65 Procalcitonin Urine Color Urine Appearance Urine pH Ur Specific [place] Urine Protein Urine Glucose (UA) Urine Ketones Urine Occult Blood Urine Nitrate Urine Bilirubin Urine Urobilinogen Ur Leukocyte Esterase Urine RBC Urine WBC Ur Squamous Epith Cells Amorphous Sediment Urine Bacteria Ur Culture Indicated? U Opiates 300ng/mL cut Ur Oxycodone Screen Urine Methadone Screen Ur Barbiturates Screen U Tricyclic Antidepress Ur Phencyclidine Scrn Ur Amphetamines Screen U Methamphetamines Scrn Ur MDMA Scrn (Ecstasy) U Benzodiazepines Scrn Urine Cocaine Screen U Marijuana (THC) Screen PFSH Medical History CVA (cerebral vascular accident) Essential hypertension Hyperlipidemia Surgical History History of hysterectomy History of nasal surgery History of shoulder surgery Family History Mother Medical history unknown Father Medical history unknown Brother Medical history unknown Brother Medical history unknown Social History household members: spouse Assessment & Plan Assessment & Plan narrative: Shivam Avelar is admitted for acute respiratory failure in the setting of COVID-19 Pneumonia, and a urinary tract infection. 1. Acute respiratory failure in the setting of COVID-19 Pneumonia, present on admission -she was initiated on loading dose of IV remdesivir 200 mg. She will be continued on IV remdesivir 100 mg daily -she was initiated on IV dexamethasone 10 mg and will be continued on 6 mg daily 2. Acute metabolic encephalopathy, present on admission -likely secondary to illness, most likely secondary to UTI 3. Acute urinary tract infection -IV ceftriaxone daily -follow up urine cultures 4. Difficult IV access, acute, present on admission -midline, PICC line ordered for patient 5. Diabetes type 2, chronic, controlled and present on admission with an A1c of 6.0 -low dose insulin correctional scale, oral medications are being held -glucose checks achs -carb controlled diet 6. Essential hypertension, currently hypotensive -hold nifedipine -restart coreg at lower dose 7. Hyperlipidemia, chronic -Continue atorvastatin 40 mg po at bedtime 8. Thombocytopenia, appears to be chronic -platelet count on 11/22 was 81, today it is 90 -lovenox sc daily VTE prophylaxis: lovenox sc Consults: none Code Status: Limited code with short term trial of intubation as discussed with with Abraham Avelar, her and surrogate/POA. Quality VTE Deep Vein Thrombosis/Pulmonary Embolism Present on Admission: No
--- NOTE | 2020-11-29 23:42 | PC.NURSE ---
Patient resting in bed most of the shift. Up to the BSC couple of times. Still on HHF at 45L & 45% FIO2.
[2020-11-30 01:00] VITALS: PULSE 63; RESP 23; O2SAT 94
[2020-11-30 04:00] VITALS: BP 111/59; PULSE 60; PULSE 61; RESP 19; TEMP 36.4; O2SAT 93; O2SAT 94
[2020-11-30 04:30] VITALS: PULSE 66; RESP 19; O2SAT 96
[2020-11-30] MEDS: SODIUM CHLORIDE 0.9% 1,000 ML 50 ML IV (04:46)
--- NOTE | 2020-11-30 05:12 | PC.NURSE ---
0300- Assumed care of Pt, A/o x3, up to BSC. HHFNC in place 45L 45%. Spo2 at rest 94%, extended recovery when OOB to BSC. Pt reports this feels like an improvement from admission. Denies pain, lungs coarse to auscultation and dim. Enc DB & C. Protective Allyven in place to cheeks. Pt using call light appropriately.
[2020-11-30 05:51] VITALS: PULSE 61; RESP 22; O2SAT 94
[2020-11-30 06:47] LABS: Add Manual Diff / Slide Review NO; Basophils Absolute Auto 0 /uL (0-100); Basophils Percent Auto 0.2 % (0-2); Eosinophils Absolute Auto 0 /uL (0-450); Hematocrit 32.2 % (36-46); Hemoglobin 11.1 g/dL (12.0-16.0); Lymphocytes Absolute Auto 600 /uL (1100-4500); Lymphocytes Percent Auto 13.2 % (25-40); Mean Corpuscular HGB Conc 34.5 % (30-36); Mean Corpuscular Hemoglobin 30.2 PG (26-34); Mean Corpuscular Volume 87.6 fL (80-100); Monocytes Absolute Auto 400 /uL (0-900); Monocytes Percent Auto 8.7 % (3-14); Neutrophils Absolute Auto 3700 /uL (1500-7000); Neutrophils Percent Auto 77.9 % (50-75); Platelet Count 115 X10^3/uL (150-400); Red Blood Cell Count 3.68 X10^6/uL (4.0-5.2); Red Cell Distribution Width 13.8 % (11.6-14.8); White Blood Cell Count 4.7 X10^3/uL (4.5-11.0)
[2020-11-30 07:02] LABS: Creatine Kinase 53 U/L (30-135); Lactate (Lactic Acid) 0.8 mmol/L (0.7-2.1); Magnesium 2.2 mg/dL (1.6-2.3)
[2020-11-30 07:03] LABS: BUN Creatinine Ratio 43.6 (6-22); Blood Urea Nitrogen 34 mg/dL (7-17); Calcium 7.7 mg/dL (8.4-10.2); Carbon Dioxide 23 mmol/L (22-32); Chloride 103 mmol/L (98-107); Estimated Glomerular Filt Rate > 60.0 mL/min (>60); Glucose 155 mg/dL (80-110); HEMOLYSIS < 15 (0-50); Potassium 3.8 mmol/L (3.4-5.1); Sodium 132 mmol/L (137-145)
[2020-11-30 08:45] VITALS: PULSE 63; RESP 20; O2SAT 92
--- NOTE | 2020-11-30 10:08 | RT ---
Patient was hanging out around 87-89% on 45L and 45%. Now shes on 45L and 50% and talked with her RN Therese and DR. Ramey
--- NOTE | 2020-11-30 10:21 | DIET.PN ---
Dietary Progress Note RD Note: Sending ONS Ensure Max c lunches to support high protein/low carb needs of this covid19+ patient.
[2020-11-30] MEDS: CODEINE/ACETAMINOPHEN 30/300 TABLET 1 TAB PO (10:49)
[2020-11-30] MEDS: OXYCODONE IR 5 MG TABLET PO (11:24)
[2020-11-30 12:08] VITALS: RESP 30; O2SAT 93
--- NOTE | 2020-11-30 12:09 | PC.NURSE ---
Addendum entered by Robyn Hunt R.N. 11/30/20 13:48: add-Pt has continued to be quite challenging for care, refusing to take PO meds, unless these are pain medications, calling out for staff from bed, and will not have any wait time, without throwing items to floor, if there is any alarm going with the HHFNC, this is incredibly agitating and causes Pt to scream out until staff is at bedside. Make the noise stop! Pt is not understanding of ANY delay in care, even if just to don PPE at the door. Daughter called, updated on POC, Updated with Pt desire to go to [facility] Daughter states, I wish she wouldnt Education provided about Pt rights and repeated, clear desire to not continue with treatment. Pt spoke with daughter, who hung up on daughter after yelling through phone. HHFNC in place, though Pt frequently removing, It doesn't feel good in my nose Education given on numerous occasions about removal of oxygen and potential for if not replaced. Pt repeatedly states, Let me , I want to go to [facility] Pt has attempted to get OOB, this RN stopped Pt from an assisted fall rushing into room, Pt yelling you took too long This RN was in room before light was on when Pt was agitated, and attempting to get OOB, nearly falling to the floor, Hypoxic and extended recovery sitting up in bed. Pt making acusations about not recieving pain medication, This RN medicated with T3 and Oxycodone, witnessed by FUR TANNER Therese, patient took PO meds without difficulty. Pt is repeatedly hitting head on side rails when call light not answered immediately. Update to who is in agreement with comfort care, confirmed with Therese MURILLO. BA remains active and curtain open for visualization. Original Note: Am shift Assumed care of Pt @ 0300, resting with even respirations, denied pain. HHFNC in place @ 45L 45% Fio2, Pt able to use call light for needs. BA active. BSC for voiding. 729-Pt became very upset after pressing call light that T3 not available Now education provided about PPE for staff and narcotic location in [facility], as well as this RN providing care to other patients, resulting in less than 2 minute delay in receiving medication. Pt visably upset with this explanation. I do not care, I need my codeine, just let them
--- NOTE | 2020-11-30 12:59 | PC.NURSE ---
Patient Refused to have vitals and//or Care
[2020-11-30] MEDS: LORazepam 2 MG/ML INJ 1 MG IV (14:43)
[2020-11-30] MEDS: MORPHINE 2 MG/ML INJ IV ×2 (15:01→18:52)
--- NOTE | 2020-11-30 15:09 | RT ---
Patient just removed off HHFNC and placed on room air due from now being comfort care.
--- NOTE | 2020-11-30 15:54 | PM.PN.1 ---
Subjective Subjective Date Patient Seen: 11/30/20 Time Patient Seen: 08:00 Interval history: Today she was clearly agitated and uncomfortable. More short of breath and in pain. She was focused on pain control. She was also clear that she no longer wanted to continue on high flow oxygen. She understood she could from stopping oxygen. She did not want further treatment for COVID. This was discussed with her , and her children were also made aware. Exam Vital Signs (past 8 hours): - 11/30/20 08:45 11/30/20 12:08 Pulse Rate 63 Respiratory Rate 20 30 H Pulse Oximetry 92 93 Fraction of Inspired Oxygen 45 Oxygen Delivery Method Heated High Flow Oxygen Flow Rate 45 Narrative Exam Narrative: Gen: alert, awake, agitated, mild distress Resp: coarse breath sounds poor air movement, appears fatigued CV: regular rate and rhythm, 3/6 ASHLEY Abd: soft, non-tender, normal bowel sounds Skin: no lesions or rashes, dry and intact NEURO: alert and oriented, slow to speak Extremities: moves all extremities Psyche: uncomfortable Objective Labs Result Diagrams: 11/30/20 06:36 11/30/20 06:36 Labs: Laboratory Results - last 24 hr 11/30/20 11/30/20 11/30/20 06:36 06:36 06:36 WBC 4.7 D RBC 3.68 L Hgb 11.1 L Hct 32.2 L MCV 87.6 MCH 30.2 MCHC 34.5 RDW 13.8 Plt Count 115 L Neut % (Auto) 77.9 H Lymph % (Auto) 13.2 L [place] % (Auto) 8.7 Eos % (Auto) 0.0 L Baso % (Auto) 0.2 Neut # (Auto) 3700 Lymph # (Auto) 600 L [place] # (Auto) 400 Eos # (Auto) 0 Baso # (Auto) 0 Sodium 132 L Potassium 3.8 Chloride 103 Carbon Dioxide 23 BUN 34 H Creatinine 0.78 Estimated GFR > 60.0 BUN/Creatinine Ratio 43.6 H Glucose 155 H Lactate Calcium 7.7 L Magnesium 2.2 Total Creatine Kinase 11/30/20 11/30/20 06:36 06:36 WBC RBC Hgb Hct MCV MCH MCHC RDW Plt Count Neut % (Auto) Lymph % (Auto) [place] % (Auto) Eos % (Auto) Baso % (Auto) Neut # (Auto) Lymph # (Auto) [place] # (Auto) Eos # (Auto) Baso # (Auto) Sodium Potassium Chloride Carbon Dioxide BUN Creatinine Estimated GFR BUN/Creatinine Ratio Glucose Lactate 0.8 Calcium Magnesium Total Creatine Kinase 53 PFSH Medical History CVA (cerebral vascular accident) Essential hypertension Hyperlipidemia Surgical History History of hysterectomy History of nasal surgery History of shoulder surgery Family History Mother Medical history unknown Father Medical history unknown Brother Medical history unknown Brother Medical history unknown Social History household members: spouse Assessment & Plan Assessment & Plan narrative: Soon Valentino is admitted for acute respiratory failure in the setting of COVID-19 Pneumonia, and a urinary tract infection. 1. Acute respiratory failure in the setting of COVID-19 Pneumonia, present on admission -on 11/30 patient began feeling more agitated and short of breath, she was in pain/uncomfortable, she wanted to stop the medications for treatment of infection, she wanted to take oxygen off, she expressed this to myself, nursing staff, and her , discussion was had and all were in agreement with respecting her wishes and with comfort care -stop all treatments with dexamethasone and remdesivir 2. Acute metabolic encephalopathy, present on admission -likely secondary to illness, most likely secondary to UTI 3. Acute urinary tract infection -stop antibiotics 4. Difficult IV access, acute, present on admission -midline, PICC line ordered for patient 5. Diabetes type 2, chronic, controlled and present on admission with an A1c of 6.0 -low dose insulin correctional scale, oral medications are being held -glucose checks achs -carb controlled diet 6. Essential hypertension, currently hypotensive -stop home medications 7. Hyperlipidemia, chronic -stop statin 8. Thombocytopenia, appears to be chronic -platelet count on 11/22 was 81, today it is 90 Code Status: Patient decided after discussion with and medical staff that she wanted to be comfort care and did not want oxygen, medical treatment, and wanted to focus on pain control. Quality VTE Deep Vein Thrombosis/Pulmonary Embolism Present on Admission: No
--- NOTE | 2020-11-30 15:55 | PC.NURSE ---
Addendum entered by Autumn Pires R.N. 11/30/20 16:11: 1600 - Family member OK'd to come in and visit patient due to change in status, given PPE. Original Note: 1555- okay with discontinuation of vitals due to patient being comfort care, orders changed
[2020-12-01] MEDS: MORPHINE 2 MG/ML INJ IV ×4 (03:14→15:58)
[2020-12-01] MEDS: SODIUM CHLORIDE 0.9% FLUSH 10 ML IV ×3 (03:15→11:57)
[2020-12-01] MEDS: PANTOPRAZOLE DR 20 MG TABLET PO (09:44)
[2020-12-01] MEDS: LORazepam 2 MG/ML INJ 1 MG IV (10:02)
--- NOTE | 2020-12-01 15:28 | CM.DPNOTE ---
DCP Note According to Dr Gutierrez, Dr Carvajal spent time w/patient and spouse yesterday and all decided on comfort measures. Patient is no longer on O2, LIDIA Chen will request a denson be placed this evening, patient remains on IV pain management. According to Dr Gutierrez, patient's prognosis is guarded however is not expected eminent at this time. Hospice referral needed. Met w/patient's spouse Abraham w/LIDIA Chen, reviewed DCP. Abraham initially thought patient may not survive the evening last night. Abraham agreeable to taking patient home, states it's me and the dog. this QUALITY CONTROL ANALYST asked about adult children?..They are likely coming to see patient over next 24-72 hours; this QUALITY CONTROL ANALYST and LIDIA Chen strongly encouraged children to get to [facility] if they want to see their mom. Abraham agreeable to referral to [facility]. E faxed face sheet and H+P, spoke w/ Aishwarya who felt [facility] RN might be available for start of care early in the week. QUALITY CONTROL ANALYST team will keep in close contact w/[facility]. Hospital bed delivery likely available Thursday. Patient has a walker and w/c at home. Abraham agreeable to hiring in-home cgs, requests assist w/this. This QUALITY CONTROL ANALYST and LIDIA Chen suggest waiting until tomorrow to reassess patient's care- giving needs (patient may decompensate significantly this evening) Plan: If patient survives this hospitalization, spouse Abraham wants to take patient home w/ Hospice, will need hospital bed delivered. In home cgs vs adult children to assist ? Abraham requested assist in placing calls to in home cg agencies Thursday or Thursday to secure additional short term assist (if available) Discussed facility placement, Abraham prefers to take patient home; COVID-19+ status will be a barrier to facility placement as well. JW
--- NOTE | 2020-12-01 16:19 | P.PN_ITS ---
Subjective Subjective Interval history: Patient is an 80-year-old female with respiratory failure secondary to comfort pneumonia now transition to comfort care only. She has had periods of pain, anxiety. She received IV morphine and Ativan earlier with excellent relief patient has been weaned off of all oxygen. is at her bedside. She does complain of pain all over Exam Vital Signs (past 8 hours): Fraction of Inspired Oxygen 45 Oxygen Delivery Method Room Air Oxygen Flow Rate 45 Narrative Exam Narrative: Ill-appearing female lying in bed Resp Other: Lungs: Decreased breath sounds with scattered crackles bilaterally Cardio Other: Cardiac exam regular rate and rhythm normal S1-S2 with a 3/6 systolic ejection murmur GI Other: Abdomen soft nontender nondistended Objective Labs Result Diagrams: 11/30/20 06:36 11/30/20 06:36 [facility] Medical History CVA (cerebral vascular accident) Essential hypertension Hyperlipidemia Surgical History History of hysterectomy History of nasal surgery History of shoulder surgery Family History Mother Medical history unknown Father Medical history unknown Brother Medical history unknown Brother Medical history unknown Social History household members: spouse Assessment & Plan Assessment & Plan narrative: Acute respiratory failure in the setting of COVID- 19 Pneumonia, present on admission -on 11/30 patient began feeling more agitated and short of breath, she was in pain/uncomfortable, she wanted to stop the medications for treatment of infection, she wanted to take oxygen off, she expressed this to myself, nursing staff, and her , discussion was had and all were in agreement with respecting her wishes and with comfort care -stop all treatments with dexamethasone and remdesivir -will start fentanyl patch 25 mics per day in addition to as needed morphine and Ativan 2. Acute metabolic encephalopathy, present on admission -likely secondary to illness, most likely secondary to UTI 3. Acute urinary tract infection -stop antibiotics 4. Difficult IV access, acute, present on admission -midline, PICC line ordered for patient 5. Diabetes type 2, chronic, controlled and present on admission with an A1c of 6.0 -low dose insulin correctional scale, oral medications are being held -comfort measures only no further by checking her blood sugar -carb controlled diet 6. Essential hypertension, currently hypotensive -stop home medications 7. Hyperlipidemia, chronic -stop statin 8. Thombocytopenia, appears to be chronic -platelet count on 11/22 was 81, today it is 90 Code Status: Patient decided after discussion with and medical staff that she wanted to be comfort care and did not want oxygen, medical treatment, and wanted to focus on pain control. Quality Quality VTE Deep Vein Thrombosis/Pulmonary Embolism Present on Admission: No
[2020-12-01] MEDS: fentaNYL 25 MCG/PATCH TOP (17:02)
[2020-12-02] MEDS: MORPHINE 2 MG/ML INJ IV ×8 (03:15→22:07)
[2020-12-02] MEDS: LORazepam 2 MG/ML INJ 1 MG IV ×5 (03:48→20:05)
[2020-12-02 11:45] VITALS: BP 173/81; PULSE 71; RESP 22; TEMP 36.2; O2SAT 73
[2020-12-02] MEDS: SODIUM CHLORIDE 0.9% FLUSH 10 ML IV ×2 (11:59→17:37)
--- NOTE | 2020-12-02 14:40 | CM.DANOTE ---
DCP/continued: Reviewed chart. Received notification from provider in AM rounds that patient currently on comfort measures and can d/c when safe plan arranged. IRON SETTER met with spouse/Abraham this AM explained role. Spouse confirms that he wants to take patient home with hospice. IRON SETTER [facility] Vianey reports that they can see patient in the residence either Thursday or Thursday next week. Spouse reports that he needs additional services in the home prior to bringing patient home. Spouse aware that caregiver services will be private pay. Spouse's first choice in private pay agencies is [facility]. Spouse reports that they have had them previously and would like them again. IRON SETTER placed call to [facility] spoke with Rosalina whom reports that she will not know until tomorrow if they can staff patient in residence beginning on Thursday12-04-20. Rosalina indicates that Clinton from [facility] will let [facility] staff know in AM on 12-03-20. In the meantime [facility] is calling spouse for consents and DME to be delivered to residence. All of the above agencies are aware that patient is COVID positive. Provider updated. P: Home with hospice once caregivers can be secured. [facility] can see patient in the residence on Thursday12-04-20 between 10-11:00AM. Anticipate that patient will need BLS transport home. SUJATA Strong
--- NOTE | 2020-12-02 15:38 | PM.PN.1 ---
Subjective Subjective Interval history: 80-year-old female with COVID pneumonia here for comfort care end of life care. Patient had a difficult night and she was incontinent of stool in urine. She is adamant that she does not want a Huerta catheter at this point. She at times is comfortable and sedated at other times she is arousable and somewhat agitated. She had a fentanyl patch placed yesterday at 25 mcg. In addition she continues to get Ativan IV and morphine IV. Exam Vital Signs (past 8 hours): - 12/02/20 11:45 Temperature 97.1 F L Pulse Rate 71 Respiratory Rate 22 Blood Pressure 173/81 H Pulse Oximetry 73 L Fraction of Inspired Oxygen 45 Oxygen Delivery Method Room Air Oxygen Flow Rate 0 Narrative Exam Narrative: Restless agitated female lying in bed Resp Other: Lungs: Diffuse crackles bilaterally, no wore a Ki or wheezing Cardio Other: Cardiac exam: Regular rate and rhythm normal S1-S2 GI Other: Abdomen: Soft nontender nondistended Extrem Other: Extremities: No edema Objective Labs Result Diagrams: 11/30/20 06:36 11/30/20 06:36 [facility] Medical History CVA (cerebral vascular accident) Essential hypertension Hyperlipidemia Surgical History History of hysterectomy History of nasal surgery History of shoulder surgery Family History Mother Medical history unknown Father Medical history unknown Brother Medical history unknown Brother Medical history unknown Social History household members: spouse Assessment & Plan Assessment & Plan narrative: Acute respiratory failure in the setting of COVID-19 Pneumonia, present on admission -on 11/30 patient began feeling more agitated and short of breath, she was in pain/uncomfortable, she wanted to stop the medications for treatment of infection, she wanted to take oxygen off, she expressed this to myself, nursing staff, and her , discussion was had and all were in agreement with respecting her wishes and with comfort care -stop all treatments with dexamethasone and remdesivir -will start fentanyl patch 25 mics per day in addition to as needed morphine and Ativan -offered Huerta catheter which patient's has again refused, will revisit tomorrow as appropriate -if the patient continues to be agitated on her current dose of fentanyl would consider increasing to 12 50 mics per day, will continue current dosing and as needed Ativan and morphine -plans underway for the patient to be discharged on Thursday home with hospice and 24 hour care. Family in agreement and aware 2. Acute metabolic encephalopathy, present on admission -likely secondary to illness, most likely secondary to UTI 3. Acute urinary tract infection -stop antibiotics 4. Difficult IV access, acute, present on admission -midline, PICC line ordered for patient 5. Diabetes type 2, chronic, controlled and present on admission with an A1c of 6.0 -low dose insulin correctional scale, oral medications are being held -comfort measures only no further by checking her blood sugar -carb controlled diet 6. Essential hypertension, currently hypotensive -stop home medications 7. Hyperlipidemia, chronic -stop statin 8. Thombocytopenia, appears to be chronic -platelet count on 11/22 was 81, today it is 90 Code Status: Patient decided after discussion with and medical staff that she wanted to be comfort care and did not want oxygen, medical treatment, and wanted to focus on pain control. Quality Quality VTE Deep Vein Thrombosis/Pulmonary Embolism Present on Admission: No
[2020-12-03] MEDS: MORPHINE 2 MG/ML INJ IV ×9 (03:20→20:46)
[2020-12-03] MEDS: LORazepam 2 MG/ML INJ 1 MG IV ×4 (07:26→17:08)
[2020-12-03] MEDS: SODIUM CHLORIDE 0.9% FLUSH 10 ML IV ×3 (07:28→20:46)
[2020-12-03 07:55] VITALS: BP 195/83; PULSE 77; RESP 40; TEMP 36.8; O2SAT 70
[2020-12-03] MEDS: SCOPOLAMINE 1 PATCH TOP ×2 (08:56→13:37)
[2020-12-03 09:13] VITALS: O2SAT 70
--- NOTE | 2020-12-03 09:38 | PC.NURSE ---
Addendum entered by Rito Lawrence R.N. 12/03/20 14:08: Resp rate/effort has become increasingly erratic and rhonchorous over the course of the day. Add'l scop patch placed and medications given for dyspnea, tachypnea. Pt moans when checking for incontinence and with minimal tactile stimuli. Per spouse, pt would not want an indwelling urinary catheter if awake and/or aware. Holding for now. Will monitor. Original Note: 0720- Spouse reports concerns regarding pt status. States pt seems restless and demonstrates labored breathing. Upon assessment, pt is noted to be tachypneic 40s, moaning, and audibly rhonchorous. Provided repositioning and oral care as well as PRN medications to promote comfort. Pt was able to rest briefly post med administration but still displayed labored breathing. Add'l medications given including scopalamine patch to behind right ear. Pt was able to rest until about 0910 at which time brief was noted to be wet. Pt moaning with turning and jozef care. Again medicated and at this time resting comfortably in bed with eyes closed. Spouse is meeting with hospice company at this time and states he will return around 1000. Plan is for pt to dc to home with hospice.
[2020-12-03 12:03] VITALS: O2SAT 70
--- NOTE | 2020-12-03 14:58 | CM.DPNOTE ---
Called [facility] and spoke with Sonja Bauman at 1455 12/03/20 to arrange BLS for 12/04/20 at 0900. She needs a POLST. Will relay to Maddi. Kristin Miller CM Asst.
--- NOTE | 2020-12-03 15:04 | CM.DPNOTE ---
Called 12/03/20 for Care givers service on Monday 12/04 or Tuesday 12/05: [facility], left vm; [facility], out 2-2.5 weeks cannot accommodate. [facility], spoke to Brenda who will have someone call me. Kristin Queen CM Asst.
[2020-12-03 15:34] VITALS: O2SAT 70
--- NOTE | 2020-12-03 16:05 | PM.PN.1 ---
Subjective Subjective Date Patient Seen: 12/03/20 Time Patient Seen: 16:05 Interval history: 80-year-old female with COVID pneumonia here for comfort care end of life care. She is not responsive today. Passing appears imminent. Exam Vital Signs (past 8 hours): - 12/03/20 09:13 12/03/20 12:03 12/03/20 15:34 Pulse Oximetry 70 L 70 L 70 L Fraction of Inspired Oxygen 45 Oxygen Delivery Method Room Air Oxygen Flow Rate 0 Narrative Exam Narrative: Gen: alert, somnolent, belly breathing, occasionally apnic. Skin: no lesions or rashes, dry and intact NEURO: non-responsive. Objective Labs Result Diagrams: 11/30/20 06:36 11/30/20 06:36 [facility] Medical History CVA (cerebral vascular accident) Essential hypertension Hyperlipidemia Surgical History History of hysterectomy History of nasal surgery History of shoulder surgery Family History Mother Medical history unknown Father Medical history unknown Brother Medical history unknown Brother Medical history unknown Social History household members: spouse Assessment & Plan Assessment & Plan narrative: 1. Acute respiratory failure in the setting of COVID-19 Pneumonia, present on admission -on 11/30 patient began feeling more agitated and short of breath, she was in pain/uncomfortable, she wanted to stop the medications for treatment of infection, she wanted to take oxygen off, she expressed this to myself, nursing staff, and her , discussion was had and all were in agreement with respecting her wishes and with comfort care -stopped all treatments with dexamethasone and remdesivir -started fentanyl patch 25 mics per day in addition to as needed morphine and Ativan -offered Huerta catheter which patient's has again refused -if the patient continues to be agitated on her current dose of fentanyl would consider increasing to 12 50 mics per day, will continue current dosing and as needed Ativan and morphine -plans underway for the patient to be discharged on Thursday home with hospice and 24 hour care. Family in agreement and aware. Passing does appear soon and may prior to discharge planned for tomorrow. 2. Acute metabolic encephalopathy, present on admission -likely secondary to illness, most likely secondary to UTI 3. Acute urinary tract infection -stop antibiotics 4. Difficult IV access, acute, present on admission -midline, PICC line ordered for patient 5. Diabetes type 2, chronic, controlled and present on admission with an A1c of 6.0 -low dose insulin correctional scale, oral medications are being held -comfort measures only no further by checking her blood sugar -carb controlled diet 6. Essential hypertension, currently hypotensive -stop home medications 7. Hyperlipidemia, chronic -stop statin 8. Thombocytopenia, appears to be chronic -platelet count on 11/22 was 81, today it is 90 Code Status: Patient decided after discussion with and medical staff that she wanted to be comfort care and did not want oxygen, medical treatment, and wanted to focus on pain control. Quality Quality VTE Deep Vein Thrombosis/Pulmonary Embolism Present on Admission: No
--- NOTE | 2020-12-03 16:10 | CM.DANOTE ---
DCP/continued: Reviewed chart. Current d/c plan is for patient to d/c home tomorrow via BLS at 9:00AM with hospice to see at 10:00AM. SPEEDER WORKER and KEEGAN made several phone call today to secure caregivers in the residence. Unfortunately, at this time unable to secure? Will re-attempt in AM if needed. Spoke with spouse/Abraham and he reports that daughter coming to stay with them to assist while patient on hospice. Abraham feels more comfortable having assistance from daughter but would like caregivers. DME delivered today. SPEEDER WORKER will reattempt securing caregiver in AM, if unable to locate spouse aware that he and daughter will have to be primary caretakers. Spouse aware and agreeable. P: Anticipate home in AM with [facility]00AM. SUJATA Strong
[2020-12-04] MEDS: MORPHINE 2 MG/ML INJ IV ×3 (00:51→06:01)
--- NOTE | 2020-12-04 01:57 | PC.NURSE ---
Addendum entered by Delaney Norton R.N. 12/04/20 05:13: 0500- states patient is restless and appears uncomfortable. Medicated per order. Mouth care done. Patient remains unconscious. Will monitor. Original Note: 0100- Patient respirations are labored. Patient medicated per orders. Mouth care provided. Patient did not wake or speak. Heart rate 75 via pulse oximetry and saturation 75. sleeping in room. Will monitor.
[2020-12-04] MEDS: LORazepam 2 MG/ML INJ 1 MG IV (04:55)
[2020-12-04 07:00] VITALS: BP 193/91; PULSE 75; RESP 30; TEMP 36.9; O2SAT 81
--- NOTE | 2020-12-04 07:42 | PM.DS.1 ---
History of Present Illness History of Present Illness Date Patient Seen: 12/04/20 Chief complaint: heat exhaustion,dehydration Narrative: Per RY Boucher: Shivam Avelar is an 80-year-old female with a prior history of a stroke approximately 1 year ago, diabetes type 2, coronary artery disease, and essential hypertension who presented to the emergency department due to confusion and dehydration. Patient is unable to give me a history other than telling me that she had a stroke several years ago however the stated it was only 1 year ago. History is obtained from her Abraham Avelar. He states approximately a week ago they were driving from [place] and she developed a really bad headache. They stopped at [facility] in [place] just outside of [place] where she was given a CT scan however they were unable to get a IV into her at that time. She insisted upon leaving and then when they arrive [place] that evening she had worsening headaches and they presented to [facility]. This was all within the setting of a current heat wave that was happening over the weekend with temperatures well in excess of over 100?. At [facility] she was evaluated in the ED, and discussions were held between the ED provider and the patient's daughter. Per the records at the outside hospital, the daughter requested that the patient not undergo a CT scan but she had a ready underwent one at the hospital in [place]. She was then seen by her PCP on 11/26 in her home and she was directed to go to the ED in [place]. She declined and eventually agreed to come to [facility]. Per the , she refused to take a COVID-19 vaccine, the patient's states he has been vaccinated. In the ED, they inserted a midline. She was hypoxic down to 82% on room air and found to be positive for COVID-19 as well as a urinary tract infection. Patient was midly febrile on admission with a temp of 99.7, her blood pressure is 113/58, heart rate 65, respiratory rate 21, oxygen saturation of 94% on 45 liters/minute high-flow O2 with an FiO2 of 62, she weighs 54.4 kg with a BMI of 23.4. She has a low white count at 3.7 RBC 3.96 hemoglobin 12 hematocrit 34.6 and a platelet count of 90. She does have lymphopenia,, her ABGs 7.53 indicating a metabolic alkalosis on, pCO2 is 29.5, PO2 54, bicarb 24, ABG O2 saturation is 91%, sodium 127, potassium 4.4, chloride 96, bicarb 25, BUN 19, creatinine 0.84, with a GFR greater than 60, glucose is 128, hemoglobin A1c is 6.0, lactate 1.4, calcium 8.8, magnesium 1.9, AST is 77, alk phos is 152, proBNP is 2510, albumin is 3.4, procalcitonin is 0.44, and TSH is 1.98, urinalysis is positive for blood and nitrates and high number of urine wbc's, many bacteria and the specimen will be cultured. COVID 19 PCR is positive. Discharge Providers Provider Date of admission: 11/28/20 18:45 Discharge Date: 12/04/20 Primary care physician: Carroll Pineda MD Consults: 11/28/20 22:20 Consult After Hours PICC Line RN Urgent Comment: 12/01/20 16:16 Consult to Discharge Planning Routine Comment: Consult to Hospice Referral Urgent Comment: Discharge provider: Stanton Leal DO Summary Hospital Course Discharge Diagnosis: 1. Acute respiratory failure in the setting of COVID-19 Pneumonia, present on admission 2. Acute metabolic encephalopathy, present on admission 3. Acute urinary tract infection 4. Difficult IV access, acute, present on admission 5. Diabetes type 2, chronic, controlled and present on admission with an A1c of 6.0 6. Essential hypertension, currently hypotensive 7. Hyperlipidemia, chronic 8. Thombocytopenia, likely chronic Hospital Course: This is an 80-year-old female admitted to the hospital for acute encephalopathy and COVID-19 pneumonia with respiratory failure. As result of her COVID-19 infection the patient began feeling more agitated and shortness of breath and was in pain and quite uncomfortable, at which point after a goals of care discussion she decided to stop therapies including oxygen, steroids, and remdesivir. She was also found to have an urinary tract infection which was treated with a few doses of IV antibiotics before they were stopped given her goals of care. Her home medications were stopped and she was kept comfortable with medications until the day of discharge when she was discharged home with hospice to resume care later that morning. Time Spent with Patient Time spent: Greater than 30 minutes Exam Vital Signs (past 8 hours): Fraction of Inspired Oxygen 45 Oxygen Delivery Method Room Air Oxygen Flow Rate 0 Narrative Exam Narrative: Gen: somnolent, belly breathing, occasionally apnic. Skin: no lesions or rashes, dry and intact NEURO: non-responsive. Objective Labs Result Diagrams: 11/30/20 06:36 11/30/20 06:36 PFSH Medical History CVA (cerebral vascular accident) Essential hypertension Hyperlipidemia Surgical History History of hysterectomy History of nasal surgery History of shoulder surgery Family History Mother Medical history unknown Father Medical history unknown Brother Medical history unknown Brother Medical history unknown Social History household members: spouse Discharge Plan Discharge Plan Patient Disposition: Hospice - Home Provider Discharge Comment: Admitted for COVID pneumonia. Elected for comfort measures. Discharged home on hospice. Discharge orders & Medications Prescriptions: New scopolamine base [Transderm-Scop] 1 mg over 3 days Patch 3 Day 1 patch topical Q72H PRN (Reason: Secretions) 14 Days Qty: 5 RF: 0 lorazepam [Lorazepam Intensol] 2 mg/mL concentrate 1 mg PO Q6H PRN (Reason: agitation) 7 Days Qty: 30 RF: 0 morphine concentrate 100 mg/5 mL (20 mg/mL) solution 10 mg PO Q3H PRN (Reason: dyspnea) 7 Days Qty: 30 RF: 0 Discontinued atorvastatin 40 mg tablet 80 mg PO BEDTIME RF: 0 metformin 500 mg tablet 500 mg PO BID RF: 0 carvedilol 12.5 mg tablet 12.5 mg PO BID RF: 0 nifedipine 30 mg tablet extended release 60 mg PO DAILY RF: 0 clopidogrel 75 mg tablet 75 mg PO DAILY RF: 0 pantoprazole 20 mg tablet,delayed release (DR/EC) 20 mg PO DAILY RF: 0 escitalopram oxalate 5 mg tablet 5 mg PO DAILY RF: 0 Prolia 60 mg/mL syringe 60 mg SUBCUT [id number] RF: 0 acetaminophen-codeine [Tylenol-Codeine #3] 300-30 mg Tablet 1 tab PO Q4H PRN (Reason: Pain (Scale Score 4-6)) RF: 0 Follow up/Referrals: Carroll Pineda MD [Primary Care Provider] - Diet/Activity/Treatments Diet: Diet as Tolerated Activity: As tolerated Discharge Data Primary Care Provider: Carroll Pineda Quality VTE Deep Vein Thrombosis/Pulmonary Embolism Present on Admission: No
--- NOTE | 2020-12-04 08:56 | CM.DPNOTE ---
Faxed DC summary at Maddi's request and received fax confirm. Kristin Queen CM Asst.
--- NOTE | 2020-12-04 09:06 | CM.DANOTE ---
DCP/continued: Reviewed chart. Met with spouse this AM. He confirms that he would like to take patient home today with hospice. Confirmed with Raysa and Vianey at [facility] that they would open case today in residence at 10:00AM. BLS transport arranged. Spouse notified that no private caregivers could be found. Spouse reports daughter/Bisi Bauman is at the residence and offered to assist. Hospice also notified that no private caregivers could be found due to staff shortage and that patient is COVID positive. Hospice agrees to follow up with spouse to provide emotional support and continue search for caregivers. P: Home today with [facility]. Copy of Important Message from Medicare provided to spouse. SUJATA Strong
[2020-12-04] MEDS: MORPHINE 10 MG/0.5 ML ORAL SYRINGE PO (09:20)
[2020-12-04] MEDS: LORazepam 2 MG/ML ORAL SOL 1 MG PO (09:20)
--- NOTE | 2020-12-04 09:59 | PC.NURSE ---
Patient on comfort care. Brief changed, jozef stefani and oral care performed. PICC removed, tolerated well, catheter intact. Patient began moaning and appeared to be in pain right before discharge around 9:30 so she was given 10mg liquid morphine and 1mg liquid atavan. Report given to EMS. Answered husbands questions. Off of unit at 9:45.
== END 2020-12-04 09:45 | disposition hospice, home (50) | DRG 177 ==
LOC: ED 18:24 → ICU 11-29 10:38 → AC 12-04 15:26 → ICU 12-04 15:26
PROVIDERS: Nurse Practitioner Family; Admitting Provider Internal Medicine; Emergency Provider Emergency Medicine; PCP Internal Medicine; Referring Provider Emergency Medicine; Visit Provider Internal Medicine
DX: U07.1 COVID-19 (principal); J12.82 Pneumonia due to coronavirus disease 2019; J96.01 Acute respiratory failure with hypoxia; G93.41 Metabolic encephalopathy; N39.0 Urinary tract infection, site not specified; E11.9 Type 2 diabetes mellitus without complications; I10 Essential (primary) hypertension; E78.5 Hyperlipidemia, unspecified; D69.6 Thrombocytopenia, unspecified; I25.10 Atherosclerotic heart disease of native coronary artery without angina pectoris; E86.0 Dehydration; Z51.5 Encounter for palliative care
CPT/HCPCS: 36415; 36592; 36600; 70450; 71045; 80048; 80053; 80305; 80320; 80329; 81001; 82550; 82805; 82962; 83036; 83605; 83735; 83880; 84145; 84443; 84484; 85025; 85610; 85730; 87040; 87077; 87086; 87186; 87635; 93005; 96361; 96365; 96366; 96375; 99285; 99291; 99292; C9803; G0480; J0696; J1100; J1642; J1650; J1815; J2060; J2270